=== PATIENT | female | born 1940 | race Caucasian/White ===

== ENCOUNTER 2016-06-06 08:35 | Inpatient (IN) | payer OTHER, BC ==
--- NOTE | 2016-06-06 08:52 | PDOC ---
History and Physical - History of Present Illness Date and Time of Service: 06/06/2016 8:55 AM Chief Complaint: Aphasia and right-sided weakness secondary to recent stroke. Poor nutrition secondary to the stroke status post PEG tube placement History of Present Illness: This is a 76 years old female with medical history significant for history of diabetes and recent stroke that caused right-sided weakness with receptive aphasia, GERD who has been in the hospital for rehabilitation from her recent stroke. Her nutrition remained poor so after discussion with her power of attorney general it was decided that the he need to have a PEG tube and that was done on Friday. I saw her the next day, she had an episode where she had near syncope or syncope. We watched her we gave her some fluids and held her blood pressure medication and she improved we thought that it was the secondary to vasovagal episode. We thought that she could be go back to the swing bed status continue rehabilitation. No meaningful information can be obtained from the patient because of her receptive aphasia. Past Medical History Medical History: 1 CVA causing right-sided weakness and receptive aphasia 2. Hallux valgus, acquired, bilateral. 3. Gastroesophageal reflux disease. 4. Collapsed arches. 5. Diabetes recently diagnosed Surgical History: . Tonsillectomy Pertinent Family History: Cannot be obtained because of her aphasia Past Social History: Patient reportedly does not smoke, I cannot obtain an alcohol history from her due to her aphasia, she had worked on a ranch prior Substance Use Type: None Alcohol Use: None Medication / Allergies Home Medications: Home Medications Medication Instructions Recorded Confirmed Type Esomeprazole Magnesium [Nexium] 40 mg PO BID cap 02/21/16 05/28/16 History Multivitamin [Multi-Vitamin Daily] 1 each PO DAILY tab 02/21/16 05/28/16 History Chlorhexidine Gluconate [Hibiclens] 120 ml TP QD #1 bottle 02/28/16 03/09/16 Clinic Amlodipine Besylate 2.5 mg PO DAILY #30 tab 03/08/16 05/28/16 Clinic Simvastatin 1 tab PO DAILY #30 tab 03/08/16 05/28/16 Clinic Acetaminophen [Tylenol] 500 mg PO BID 05/28/16 05/28/16 History Escitalopram Oxalate [Lexapro] 10 mg PO DAILY 05/28/16 05/28/16 History Insulin Lispro Flexpen Inj 4 unit SUBCUT AC HS 0200 05/28/16 05/28/16 History [HumaLOG Flexpen Inj] Lisinopril [Prinivil Tab] 5 mg PO DAILY 05/28/16 05/28/16 History Omeprazole 40 mg PO DAILY 05/28/16 05/28/16 History metFORMIN Tab [Glucophage Tab] 1,000 mg PO BID 05/28/16 05/28/16 History Allergies/Adverse Reactions: Allergies Allergy/AdvReac Type Severity Reaction Status Date / Time amoxicillin AdvReac Severe anaphlaxis Verified 06/05/16 06:54 Review of Systems - Review of Systems All Systems: Reviewed & No Additional Complaints Except as Stated Exam - Vitals Vital Signs: Vital Signs Height 5 ft 5 in - General General Appearance: POSITIVE: No Acute Distress, Thin - Head Head Exam: POSITIVE: Normal Inspection, Atraumatic - Eye Eye Exam: POSITIVE: Normal Appearance - ENT ENT Exam: POSITIVE: Normal Exam - Neck Neck Exam: POSITIVE: Normal Inspection - Respiratory Respiratory Exam: POSITIVE: Clear to Auscultation - Bilaterally - Cardiovascular Cardiovascular Exam: POSITIVE: RRR - GI/Abdominal GI/Abdominal Exam: POSITIVE: Normal Bowel Sounds, Non Tender, Non Distended, Soft Additional GI/Abdominal Exam Details: J-tube in place - Rectal Rectal Exam: POSITIVE: Deferred - External Exam: POSITIVE: Deferred - Extremities Extremities Exam: POSITIVE: Normal Inspection - Back Additional Back Exam Details: Decubitus ulcer covered with dressing. - Neurological Neurological Exam: POSITIVE: Alert Additional Neurological Exam Details: Right-sided weakness with aphasia and word salad - Psychiatric Psychiatric Exam: POSITIVE: Flat Affect - Integumentary Integumentary Exam: POSITIVE: Normal Color Assessment and Plan - Patient Problems (1) History of stroke Current Visit: No Status: Acute Comment: Continue PT, OT. For nutrition she has a PEG tube and now she'll get nutrition supplementation through the PEG. (2) Diabetes Current Visit: Yes Status: Acute Comment: She is on metformin and sliding scale insulin continue. Her A1c much improved compared to February (3) Hypertension Current Visit: No Status: Chronic Comment: Her blood pressure is actually acceptable. I think I'll restart lisinopril at a low dose. This is mainly for history of stroke. Qualifiers: Hypertension type: essential hypertension Qualified Description: Essential hypertension Qualifier Code(s): (I10) Essential (primary) hypertension (4) Decubitus ulcer Current Visit: Yes Status: Acute Comment: This was present when she came in. Continue wound dressing. (5) DVT prophylaxis Current Visit: No Status: Acute Comment: She is on Lovenox (6) Depression Current Visit: Yes Status: Acute Comment: We thought that she was depressed and started her on antidepressant will continue. She did have some hyponatremia but we thought that's related to the ProcalAmine will recheck her sodium in a few days to make sure that this remains stable. (7) Esophagitis Current Visit: Yes Status: Acute Comment: She is on Prevacid continue
[2016-06-06] MEDS ORDERED: ENOXAPARIN SODIUM 40 MG/0.4 ML SYRINGE SUBCUT SCH (09:00)
[2016-06-06] MEDS ORDERED: metFORMIN 500 MG TABLET PO SCH (09:00)
[2016-06-06] MEDS ORDERED: ESCITALOPRAM 10 MG TABLET PO SCH (09:00)
[2016-06-06] MEDS ORDERED: LISINOPRIL 5 MG TABLET PO SCH (09:00)
[2016-06-06] MEDS ORDERED: Multivitamin Tab 1 TAB PO SCH (09:00)
[2016-06-06] MEDS ORDERED: CLOPIDOGREL 75 MG TABLET PO SCH (09:00)
[2016-06-06] MEDS: Insulin Lispro Flexpen 300 UNIT/3 ML INSULN.PEN SUBCUT SCH ×3 (11:32→21:11)
[2016-06-06] MEDS: metFORMIN 500 MG TABLET PO SCH (21:37)
[2016-06-06] MEDS: Simvastatin Tab 10 MG TAB PO SCH (21:38)
[2016-06-06] MEDS: ACETAMINOPHEN 500 MG TABLET PO PRN (21:38)
[2016-06-07] MEDS ORDERED: LANSOPRAZOLE 30 MG SOLUTAB PO SCH (07:00)
[2016-06-07] MEDS: LANSOPRAZOLE 30 MG SOLUTAB PO SCH (07:08)
[2016-06-07] MEDS: Insulin Lispro Flexpen 300 UNIT/3 ML INSULN.PEN SUBCUT SCH ×4 (07:08→21:05)
[2016-06-07] MEDS: ESCITALOPRAM 10 MG TABLET PO SCH (08:20)
[2016-06-07] MEDS: LISINOPRIL 5 MG TABLET PO SCH (08:20)
[2016-06-07] MEDS: Multivitamin Tab 1 TAB PO SCH (08:20)
[2016-06-07] MEDS: metFORMIN 500 MG TABLET PO SCH ×2 (08:20→21:17)
[2016-06-07] MEDS: CLOPIDOGREL 75 MG TABLET PO SCH (08:21)
[2016-06-07] MEDS: ENOXAPARIN SODIUM 40 MG/0.4 ML SYRINGE SUBCUT SCH (08:21)
--- NOTE | 2016-06-07 10:02 | OT.PROG ---
Progress Note Progress Note: S: Pt. low mood and appearing fatigued. O: Pt. seen from 0830 to 0900 with pt. moving form recliner chair to sitting edge of recliner with mod A. Pt. completed L s/p transfer with Max A x1. Pt. engaged in dressing tasks and requiring mod A to alen long-sleeved pull-over sweatshirt using luis-dressing techniques. Pt. engaged in Le dressing requiring max A x 1 with pt. requiring assist to thread elastic waist pants up to her mid- thigh. Pt. dependent to alen socks. A: Flexor synegry in RUE and incoming tone evidenced. P: Continue POC. Jackie Carlos ORD, OTR/L
--- NOTE | 2016-06-07 14:39 | OT PM DAY ---
Diagnosis : Cerebral Vascular Accident PM - Occupational Therapy S: The patient was seen before and after pool therapy session with PT. O: The therapist assisted the patient with transferring from recliner to the weight machine to her wheelchair with mod assist x1. The patient was wheeled down to the therapy department where she changed her clothes and had Tegaderm placed on her PICC tube and also on her wound on the coccyx. The patient attempted to assist putting her feet into her swimming suit. During transfers the patient did attempt to move feet appropriately, slowly moving side to side. The patient was transferred to PT for pool therapy. After session, the patient required max assist with doffing and donning of upper and lower extremity clothing and was wheeled back to her room where she she transferred from wheelchair to bed. During the time, it is noted that the patient did assist with side steps to move to line up with the bed with min assist, verbal cues, and tactile cues. The patient required mod assist to transfer from edge of bed to supine. The patient was able to lean toward the pillow but was not able to lift her feet up into the bed. The patient was left with call light available and blankets on. A: The patient demonstrated progress with increased movement during transfers today. P: Continue seeing patient BID during the week and one time per day over the weekend for upper extremity strengthening, ADLs, and overall functional mobility. MTDD
--- NOTE | 2016-06-07 15:28 | OTI REPORT ---
Thank you for the referral of [place] Sehr. She was seen on 06/06/16 for an occupational therapy swingbed evaluation secondary to CVA. SUBJECTIVE: The patient is a 76-year-old female who is being seen secondary going swingbed post a severe CVA which has affected her right upper and lower extremities and her speech. The patient recently had a feeding tube placed secondary to lack of nutrition and lack of ability to keep herself at a health status for her energy levels and nutritional needs. The patient is in the hospital to continue to work on improving her speech abilities, her functional tasks, and being able to maneuver more independently. PAST MEDICAL HISTORY: Past medical history can be found in the patient's medical record. OBJECTIVE FINDINGS: Range of motion: The patient has zero active range of motion in the shoulder. Elbow extension to flexion was 40 to 90 degrees. She is demonstrating some more active movement of the right elbow today. The patient was able to make a 50% fist and was able to open fingers, which is an improvement. Speech: The patient's speech can be garbled. She is demonstrating approximately 75% accuracy with yes and no responses. Her ability to engage in a full conversation is severely impaired and she is demonstrating some global aphasia, especially in the expressive aphasia realm. She does nod her head yes or no or she will respond with yes or no appropriately. Cognition: On a formal test, the patient is having difficulty naming objects. She can put together simple puzzles. She does engage in more conversation about things she is interested in. She will make good eye contact when she is engaged in the activity. Strength: Strength in the left upper extremity is approximately 3+/5 for shoulder flexion/abduction, 4/5 for elbow flexion/extension, and 3+/5 for wrist flexion/extension. These are somewhat hard to test because the patient has a difficult time understanding exactly what to do to try to assess strength. Strength in the right shoulder is 0/5. Right elbow flexion/extension was 0/5. Right hand strength is more than likely 1-/5. Activities of daily living: The patient requires max assist for lower extremity dressing and mod assist for upper extremity dressing. Transfers: The patient requires max assist to transfer from sit to stand and to complete stand pivot transfer. ASSESSMENT: At this time the patient is demonstrating effects from a pretty severe infarct of the frontal temporal lobe as well as the Broca's area of the brain. Problem List: Decreased speech/communication Decreased use of right upper extremity Decreased functional transfers Short-Term Goals: To be met by discharge from swingbed: Patient will be able to use right hand as a helper hand to grasp objects in front of her or to open containers with 75% independence. Patient will be able to actively move her elbow and hand to bring a cup to her mouth. Patient will be able to have accurate yes and no responses 90% of the time. Patient will be able to complete a toilet transfer with min assist. Patient will be able to dress lower extremities with min assist and upper extremities independently. Long-Term Goals: To be met following discharge from swingbed: Patient will more than likely need 24-hour care upon discharge. Patient will be able to communicate her needs consistently throughout the day. TREATMENT PLAN: Patient will be seen B.I.D during the week and one time per day over the weekend as a swingbed patient to address the above goals and objectives. INITIAL TREATMENT: Treatment today consisted of the swingbed evaluation followed by the patient completing multiple activities within her room. She worked on dressing self; she required max assist to dress lower extremities and mod assist to dress upper extremities. We worked on her speech abilities. The therapist brought a globe and she was able to respond yes or no to the states that she has visited and states she has not visited. We also worked on number tasks; she was able to state the numbers 3, 4, and 5 today. The patient was also able to work on writing her name without any help. She was able to write FINK four times. The therapist then assisted the patient with drawing pictures. MARS
--- NOTE | 2016-06-07 15:51 | PT.PROG ---
Progress Note Progress Note: S. Patient agreed to go to the therapy gym. O. Patient was stood x 3 minutes then transferred to the wheelchair where she was wheeled to the therapy gym, she was transferred from the wheelchair to the mat table. She was left with OT. A. she was supine for approximately 30 seconds and her head was raised to 45 degrees she then vomited and was unwilling to do any more PT. P. Continue POC.
--- NOTE | 2016-06-07 15:52 | PT.PROG ---
Progress Note Progress Note: Patient was not seen this afternoon due to Nursing recommendation.
--- NOTE | 2016-06-07 16:20 | PTI REPORT ---
Thank you for the referral of [place] Sher. She was seen on 06/06/16 for a swingbed evaluation status post CVA affecting right side. SUBJECTIVE: The patient is a 76-year-old female. The patient made it understood that her left knee aches and hurts in certain sitting positions. PAST MEDICAL HISTORY: Past medical history can be found in the patient's medical record. OBJECTIVE FINDINGS: General observations: The patient was seen post occupational therapy today. The patient was able to respond to yes or no questions well. The patient demonstrated expressive aphasia. The patient is flaccid in the right lower extremity and right upper extremity. The patient presents with a Stage II pressure ulcer right above the gluteal cleft. It appears macerated. Transfers: The patient requires mod to max assist x2 for sit to stand transfer with platform walker for right hand. The patient requires max assist for placing hand on walker. Ambulation: The patient requires mod assist x2 to max assist x2 with gait with max right lower extremity assistance. Balance: Standing balance is poor. Dynamic balance is poor. ASSESSMENT: The patient is a 76-year-old female status post CVA affecting right side, demonstrating right sided luis-paresis. The patient would benefit from skilled therapy in order to improve functional mobility. Problem List: Decreased functional mobility Decreased balance Decreased strength Physical Therapy Goals: To be met by discharge from swingbed: Patient will be able to complete bed mobility with min assist x1. Patient will be able to transfer from supine to sit with min assist x1. Patient will be able to ambulate with least restrictive assistive device. Patient will have fair sitting static and dynamic balance. TREATMENT PLAN: Patient will be seen B.I.D during the week and one time per day over the weekend as a swingbed patient for therapeutic exercise, functional activity, gait training, neuromuscular reeducation, range of motion, modalities as needed , and wound care. INITIAL TREATMENT: Treatment today consisted of the swingbed evaluation followed by standing balance activities. The patient required mod to max assist x2. The patient ambulated approximately 3 feet with max assist for lower extremity. She required rest break and then ambulated another 5 feet with max assist x2 for right lower extremity. The patient's wound was assessed and dressed with Calmoseptine and gauze. The patient was left in bed with bed alarm on and call light within reach. MTDD
--- NOTE | 2016-06-07 17:11 | PT.PROG ---
Progress Note Progress Note: S: [place] is doing fair this PM. Fatigued from her therapies this AM but appears to be excited to get back into the pool this afternoon. O: Treatment consisted of pool exercises for 20 minutes - working on ambulation with assistance. Pt able to ambulate with CGA x 1 before fatigued set in then required assistance to move her l/e. A: Pt fatigued easily with pool exercises today and not able to tolerate as much activity as in previous sessions. Pt did better with ambulation and lifting her l/e's until she fatigued. Pt did not participate in counting during exercises this PM. P: Continue per POC.
[2016-06-07] MEDS: ACETAMINOPHEN 500 MG TABLET PO PRN (21:16)
[2016-06-07] MEDS: Simvastatin Tab 10 MG TAB PO SCH (21:16)
[2016-06-08] MEDS: ACETAMINOPHEN 500 MG TABLET PO PRN (03:00)
[2016-06-08 05:50] LABS: BUN/CREATININE RATIO 24.28 (6-20); CALCIUM 9.1 mg/dL (8.7-10.7); CREATININE 0.7 mg/dL (0.50-1.20); POTASSIUM 3.9 meq/L (3.8-5.2)
[2016-06-08] MEDS: Insulin Lispro Flexpen 300 UNIT/3 ML INSULN.PEN SUBCUT SCH ×4 (08:38→21:30)
[2016-06-08] MEDS: LANSOPRAZOLE 30 MG SOLUTAB PO SCH (08:40)
[2016-06-08] MEDS: ENOXAPARIN SODIUM 40 MG/0.4 ML SYRINGE SUBCUT SCH (09:47)
[2016-06-08] MEDS: ESCITALOPRAM 10 MG TABLET PO SCH (09:48)
[2016-06-08] MEDS: Multivitamin Tab 1 TAB PO SCH (09:48)
[2016-06-08] MEDS: metFORMIN 500 MG TABLET PO SCH ×2 (09:48→21:30)
[2016-06-08] MEDS: CLOPIDOGREL 75 MG TABLET PO SCH (09:48)
[2016-06-08] MEDS: LISINOPRIL 5 MG TABLET PO SCH (09:53)
--- NOTE | 2016-06-08 11:35 | PT.PROG ---
Progress Note Progress Note: S: Pt. expresses fatigue today. Otherwise no new c/o. O: Treatment consisted of functional activities including transfer training from recliner to w/c and back. She performed seated Ue exercises: bicep curls, shoulder extension with yellow theraband; fine motor tasks working to peice puzzles for visual motor cueing and pincer strength. She also worked on writing tasks and was able to write a word 5 times...the word was not disernable. Pt. placed back in her recliner with feet elevated and nursing notified. Chair alarm in place. A: Pt. very fatigued today and had difficulty completing task while staying alert. She was able to assist with transfers and did well with static standing. Otherwise still weak and fatigues easily. P: Continue per POC to increase strength and activity tolerance. Roxanne Jones, NETWORK PROFESSIONAL
[2016-06-08] MEDS: Simvastatin Tab 10 MG TAB PO SCH (21:30)
[2016-06-09] MEDS: ACETAMINOPHEN 500 MG TABLET PO PRN ×2 (00:49→20:48)
[2016-06-09] MEDS: LANSOPRAZOLE 30 MG SOLUTAB PO SCH (08:24)
[2016-06-09] MEDS: ENOXAPARIN SODIUM 40 MG/0.4 ML SYRINGE SUBCUT SCH (09:53)
[2016-06-09] MEDS: CLOPIDOGREL 75 MG TABLET PO SCH (09:53)
[2016-06-09] MEDS: LISINOPRIL 5 MG TABLET PO SCH (09:53)
[2016-06-09] MEDS: metFORMIN 500 MG TABLET PO SCH ×2 (09:54→20:47)
[2016-06-09] MEDS: ESCITALOPRAM 10 MG TABLET PO SCH (09:54)
[2016-06-09] MEDS: Insulin Lispro Flexpen 300 UNIT/3 ML INSULN.PEN SUBCUT SCH ×4 (10:05→20:29)
[2016-06-09] MEDS: Multivitamin Tab 1 TAB PO SCH (10:14)
--- NOTE | 2016-06-09 12:01 | PDOC(PROG) ---
Interval History: Patient is alert still with expressive aphasia looks very weak Objective : Data - Labs CBC and BMP: 06/08/16 05:20 Objective : Exam - Respiratory Respiratory Exam: Clear to Auscultation - Bilaterally, Breathing Non Labored, Normal To Percussion - Cardiovascular Cardiovascular Exam: RRR, No Murmur - GI/Abdominal GI/Abdominal Exam: Normal Bowel Sounds, Soft Assessment and Plan - Patient Problems (1) Decubitus ulcer Current Visit: Yes Status: Acute (2) Depression Current Visit: Yes Status: Acute (3) Diabetes Current Visit: Yes Status: Acute (4) Esophagitis Current Visit: Yes Status: Acute (5) Aphasia as late effect of cerebrovascular accident Current Visit: No Status: Acute (6) History of stroke Current Visit: No Status: Acute (7) Hypertension Current Visit: No Status: Chronic Qualifiers: Hypertension type: essential hypertension Qualified Description: Essential hypertension Qualifier Code(s): (I10) Essential (primary) hypertension - Assessment / Plan Additional Assessment/Plan Details: - Patient Problems (1) History of stroke Continue PT, OT. For nutrition she has a PEG tube nutrition specialists consulted she will be getting her feeding via PEG tube (2) Diabetes on metformin and sliding scale plus insulin continue. Her A1c much improved compared to February (3) Hypertension Continue lisinopril (4) Decubitus ulcer This was present when she came in. Continue wound dressing. (5) DVT prophylaxis She is on Lovenox (6) Depression Patient is on antidepressant I doubt this is helping much (7) Esophagitis She is on Prevacid continue
[2016-06-09] MEDS: Simvastatin Tab 10 MG TAB PO SCH (20:47)
[2016-06-10] MEDS: ACETAMINOPHEN 500 MG TABLET PO PRN ×2 (03:29→20:39)
[2016-06-10] MEDS: Insulin Lispro Flexpen 300 UNIT/3 ML INSULN.PEN SUBCUT SCH ×2 (07:44→11:21)
[2016-06-10] MEDS: ESCITALOPRAM 10 MG TABLET PO SCH (09:30)
[2016-06-10] MEDS: LISINOPRIL 5 MG TABLET PO SCH (09:30)
[2016-06-10] MEDS: LANSOPRAZOLE 30 MG SOLUTAB PO SCH (09:30)
[2016-06-10] MEDS: metFORMIN 500 MG TABLET PO SCH ×2 (09:30→20:39)
[2016-06-10] MEDS: ENOXAPARIN SODIUM 40 MG/0.4 ML SYRINGE SUBCUT SCH (09:31)
[2016-06-10] MEDS: Multivitamin Tab 1 TAB PO SCH (09:31)
[2016-06-10] MEDS: CLOPIDOGREL 75 MG TABLET PO SCH (09:31)
--- NOTE | 2016-06-10 10:25 | PT AM DAY ---
Diagnosis : Cerebral Vascular Accident AM - Physical Therapy S: Nursing staff reports the patient continues to refuse to eat. O: The patient required max assist for all bed mobility and transfers in and out of the wheelchair. She was brought downstairs where she performed therapeutic exercises and functional activities including fine motor skills with her left arm only, ball rolling, and writing activities. She also participated in static standing activities with max assist x1 from the therapist. Inspection was attempted in the gluteal fold; however, a bandage was put in place with the date from this morning from the nursing staff and therefore was not removed for inspection. She also performed left lower extremity kick out exercises and marches as well as left upper extremity yellow theraband strengthening. A: The patient tolerated therapy much like she has done in the past. P: Continue seeing patient BID during the week and one time per day over the weekend for transfers, ambulation, and range of motion/strengthening exercises. MTDD
--- NOTE | 2016-06-10 12:19 | OT.PROG ---
Progress Note Progress Note: S: Pt. loose stool today during OT session and pt. appearing frustrated. O: Pt. seen from 1130 to 1145 with pt. completing transfer form recliner to commode performing a L s/p transfer with mod A. Pt. required total assist for toileting (brief up and down, and cleanse) and mod A for commode transfer. A: Pt rambling throughout tx session and nursing notified of pt's loose stool as well as needing a dressing change for wound on coccyx. P: Continue POC. Jackie Carlos OTD, OTR/L
--- NOTE | 2016-06-10 14:58 | PT.PROG ---
Progress Note Progress Note: S. Patient agreed to go to the commode, she is not feeling well this morning. O. Patient transferred to the commode she stood x 2 minutes then sit to stands x 3 and transferred back to the chair where she was left with alarm and call light. A. Patient continues to struggle with weakness, she was able to perform the stand pivot transfer with mod assist x 1. Patient would continue to benefit from skilled therapy to increase mobility, strength and endurance. P. continue POC.
--- NOTE | 2016-06-10 15:01 | PT.PROG ---
Progress Note Progress Note: Nursing suggested to allow her to rest this afternoon due to her diarrhea.
[2016-06-10] MEDS: Simvastatin Tab 10 MG TAB PO SCH (20:39)
[2016-06-11] MEDS: LANSOPRAZOLE 30 MG SOLUTAB PO SCH (09:26)
[2016-06-11] MEDS: ENOXAPARIN SODIUM 40 MG/0.4 ML SYRINGE SUBCUT SCH (09:27)
[2016-06-11] MEDS: LISINOPRIL 5 MG TABLET PO SCH (09:27)
[2016-06-11] MEDS: ESCITALOPRAM 10 MG TABLET PO SCH (09:27)
[2016-06-11] MEDS: CLOPIDOGREL 75 MG TABLET PO SCH (09:27)
[2016-06-11] MEDS: metFORMIN 500 MG TABLET PO SCH ×2 (09:27→20:32)
[2016-06-11] MEDS: Multivitamin Tab 1 TAB PO SCH (09:27)
--- NOTE | 2016-06-11 14:36 | PT.PROG ---
Progress Note Progress Note: S. Patient agreed to go to the therapy gym. O. Patient transferred to the wheelchair then to the commode then back to the wheelchair then to bed. A. Patient was very tired and weak after having diarrhea, she did not want to leave her room. Patient would continue to benefit from skilled therapy to increase strength, endurance and mobility. P. Continue POC.
[2016-06-11] MEDS: ACETAMINOPHEN 500 MG TABLET PO PRN (20:33)
[2016-06-11] MEDS: Simvastatin Tab 10 MG TAB PO SCH (20:33)
[2016-06-12] MEDS: ACETAMINOPHEN 500 MG TABLET PO PRN ×2 (02:30→21:12)
[2016-06-12 06:08] LABS: BILIRUBIN,TOTAL 0.6 mg/dL (0.3-1.2); BUN/CREATININE RATIO 16.66 (6-20); CALCIUM 8.5 mg/dL (8.7-10.7); CREATININE 0.6 mg/dL (0.50-1.20); MAGNESIUM 1.4 mg/dL (1.6-2.4); POTASSIUM 2.7 meq/L (3.8-5.2); TOTAL PROTEIN 5.6 g/dL (6.1-8.0)
[2016-06-12] MEDS: LANSOPRAZOLE 30 MG SOLUTAB PO SCH (10:12)
[2016-06-12] MEDS: LISINOPRIL 5 MG TABLET PO SCH (10:13)
[2016-06-12] MEDS: metFORMIN 500 MG TABLET PO SCH ×2 (10:13→21:12)
[2016-06-12] MEDS: Multivitamin Tab 1 TAB PO SCH (10:13)
[2016-06-12] MEDS: CLOPIDOGREL 75 MG TABLET PO SCH (10:14)
[2016-06-12] MEDS: ENOXAPARIN SODIUM 40 MG/0.4 ML SYRINGE SUBCUT SCH (10:14)
[2016-06-12] MEDS: ESCITALOPRAM 10 MG TABLET PO SCH (10:14)
--- NOTE | 2016-06-12 14:11 | OT AM DAY ---
Diagnosis : Cerebral Vascular Accident AM - Occupational Therapy S: The patient reports no significant changes. O: We worked on dressing tasks which included dressing upper extremities with mod assist. Once we got the patient in the wheelchair, she kept pulling at her Depends and saying "not good". We put the patient on the commode and the patient filled the commode with approximately 1" of diarrhea. The therapist worked on trying to have the patient toilet. It took three different times today in order to get the patient back in some decent clothes. We had to change her clothes twice and the Depends three different times as each time we stood up the patient had so much diarrhea it would go onto her pants and her Depends, even after sitting on the commode for 5-10 minutes after each episode. We finally got the Depends and pants pulled up to the patient's waist. The patient stated that she didn't feel good. Some things that were stated today were "this is disgusting", "it smells gross", and "I don't know what to do". The patient was able to verbalize some of her needs as well as point to the area that she was having difficulty with today. A: It was reported to nursing that the patient was having severe amounts of diarrhea. She was going to talk to Dr. Jackman about possible c.diff testing and anything else that could help decrease the diarrhea. This has been going on since Friday per nursing. The patient was not up for anymore activities following this. P: Continue seeing patient BID during the week and one time per day over the weekend until discharge. MARS
--- NOTE | 2016-06-12 16:36 | PT.PROG ---
Progress Note Progress Note: Patient was unable to perform therapy this afternoon due to diarrhea again this afternoon.
--- NOTE | 2016-06-12 16:36 | PT.PROG ---
Progress Note Progress Note: S. Patient agreed to stand for a few minutes, she did not want to go to the therapy gym. O. Patient transferred from sit to stand then stood x 5 minutes. Patient performed sit to stand 3 times with mod assist. Patient was left with OT for further therapy. A. Patient was unwilling to perform any other therapy. Patient appears to be weaker than previously. She would continue to benefit from skilled therapy to increase strength and mobility. P. Continue POC.
[2016-06-12] MEDS: Loperamide Tab 2 MG TABLET PO SCH (17:34)
[2016-06-12] MEDS: Simvastatin Tab 10 MG TAB PO SCH (21:12)
--- NOTE | 2016-06-13 08:50 | OT PM DAY ---
Diagnosis : Cerebral Vascular Accident PM - Occupational Therapy S: The patient was excited to try some activities this afternoon. She smiled a lot and was talkative during the session; most of her verbalization was garbled but she did make some sensible remarks. O: Today the therapist presented with a painting activity. We attempted to have the patient state simple objects such as harley, trees, birds, etc. The patient was able to dip the paintbrush in her left hand and started writing FINK three times on the paper. The therapist assisted with hand over hand assist for making harley and trees. After this the patient made four different harley on the paper by herself. She was on an angled board with her glasses on. She also started painting shapes on her own which somewhat represented clouds. During this time the patient said "please" and "thank you" and she also said "that's nice". The patient nodded and said "mm-hmm" a few different times and she was quite pleasant. After 45 minutes of painting and discussing basic items, the patient reported that she was very fatigued. A: The patient participated well today. She made some sensible comments. She is still having difficulty with naming objects but is being very responsive and having accuracy with yes and no responses. P: Continue seeing patient BID during the week and one time per day over the weekend for upper extremity strengthening, ADLs, and overall functional mobility. MARITOD
--- NOTE | 2016-06-13 09:22 | OT PM DAY ---
Diagnosis : Cerebral Vascular Accident PM - Occupational Therapy S: The patient did look like she was having some stomach problems but she kept telling the therapist that she did not have to go to the bathroom. O: Today we attempted going to the pool. We transferred the patient from the chair to the wheelchair with max assist. The patient was transferred down to the pool area. When we stood the patient she started having diarrhea. We sat the patient on the toilet and she sat for approximately 10 minutes. She did nothing in the toilet and when we stood her up she had a diarrhea explosion all over the toilet and the floor. We cleaned the patient up and continued to sit her on the toilet. She did have quite a bit of diarrhea in the toilet. We did another clean up and transferred the patient back to the wheelchair and back to her room. The patient was placed in bed with call light. Her nurse was consulted again about her diarrhea as this is a concern. A: We tried doing functional activities with the patient but she continues to have pretty explosive diarrhea. She is very tired after this and usually closes her eyes and says "no more". P: Continue seeing patient BID during the week and one time per day over the weekend until discharge. MARS
--- NOTE | 2016-06-13 09:32 | OT AM DAY ---
Diagnosis : Cerebral Vascular Accident AM - Occupational Therapy S: The patient was seen after PT session. The patient indicated that she was fatigued and hurts all over. O: The patient received manual therapy in the form of massage to the lower extremities and to left upper extremity to decrease tightness and increase circulation. The patient is very tight bilaterally in IT band. The therapist massaged and stretched the patient to help increase elasticity and to promote circulation. A: The patient indicated by the end of session she felt better. P: Continue seeing patient BID during the week and one time per day over the weekend for upper extremity strengthening, ADLs, and overall functional mobility. MTDD
[2016-06-13] MEDS: LANSOPRAZOLE 30 MG SOLUTAB PO SCH (09:56)
[2016-06-13] MEDS: Multivitamin Tab 1 TAB PO SCH (09:57)
[2016-06-13] MEDS: ESCITALOPRAM 10 MG TABLET PO SCH (09:57)
[2016-06-13] MEDS: CLOPIDOGREL 75 MG TABLET PO SCH (09:57)
[2016-06-13] MEDS: LISINOPRIL 5 MG TABLET PO SCH (09:57)
[2016-06-13] MEDS: ENOXAPARIN SODIUM 40 MG/0.4 ML SYRINGE SUBCUT SCH (09:57)
[2016-06-13] MEDS: metFORMIN 500 MG TABLET PO SCH ×2 (09:57→21:35)
[2016-06-13] MEDS: Loperamide Tab 2 MG TABLET PO SCH ×2 (11:25→21:35)
[2016-06-13] MEDS ORDERED: metFORMIN 500 MG TABLET PO ONE (19:57)
[2016-06-13] MEDS ORDERED: Simvastatin Tab 10 MG TAB PO ONE (19:57)
[2016-06-13] MEDS ORDERED: Loperamide Tab 2 MG TABLET PO ONE (19:58)
[2016-06-13 21:06] LABS: BILIRUBIN,TOTAL 0.5 mg/dL (0.3-1.2); CALCIUM 8.3 mg/dL (8.7-10.7); CREATININE 0.6 mg/dL (0.50-1.20); POTASSIUM 2.9 meq/L (3.8-5.2); TOTAL PROTEIN 5.5 g/dL (6.1-8.0)
[2016-06-13] MEDS: Simvastatin Tab 10 MG TAB PO SCH (21:35)
[2016-06-14] MEDS ORDERED: LANSOPRAZOLE 30 MG SOLUTAB PO ONE (08:42)
[2016-06-14] MEDS: LANSOPRAZOLE 30 MG SOLUTAB PO SCH (08:46)
[2016-06-14] MEDS ORDERED: Loperamide Tab 2 MG TABLET PO SCH ×2 (09:30)
[2016-06-14] MEDS ORDERED: LISINOPRIL 5 MG TABLET PO ONE (10:05)
[2016-06-14] MEDS: Multivitamin Tab 1 TAB PO SCH ×2 (10:08→10:23)
[2016-06-14] MEDS: metFORMIN 500 MG TABLET PO SCH ×3 (10:09→21:00)
[2016-06-14] MEDS: LISINOPRIL 5 MG TABLET PO SCH (10:09)
[2016-06-14] MEDS: ESCITALOPRAM 10 MG TABLET PO SCH ×2 (10:23→10:24)
[2016-06-14] MEDS: ENOXAPARIN SODIUM 40 MG/0.4 ML SYRINGE SUBCUT SCH ×2 (10:23→10:24)
[2016-06-14] MEDS: CLOPIDOGREL 75 MG TABLET PO SCH ×2 (10:23→10:24)
[2016-06-14] MEDS ORDERED: POTASSIUM CHLORIDE 40 MEQ/15 ML UD CUP PO ONE (10:39)
--- NOTE | 2016-06-14 11:20 | PT PM DAY ---
Diagnosis : Cerebral Vascular Accident PM - Physical Therapy S: The patient agreed to go to the therapy gym. O: The patient was transferred to the wheelchair and was wheeled to the therapy gym where she performed sit to stand transfers x3, standing x5 minutes, seated long arc quads, marches, heel/toe raises, ball squeezes, and clamshells with the left leg. With assistance the patient performed long arc quads and marches with her right leg. The patient was wheeled back to her room where she was left in bed with call light and alarm. A: The patient continues to tolerate therapy well. She was in a much better mood today than she has been previously. She appears to be weaker than she was in previous weeks; however, she seems to be gaining. She would continue to benefit from therapy to increase strength and mobility. P: Continue seeing patient BID during the week and one time per day over the weekend for transfers, ambulation, and range of motion/strengthening exercises. MARS
[2016-06-14 11:23] LABS: BUN/CREATININE RATIO 8.33 (6-20); CALCIUM 8.4 mg/dL (8.7-10.7); CREATININE 0.6 mg/dL (0.50-1.20); MAGNESIUM 1.3 mg/dL (1.6-2.4); POTASSIUM 3.2 meq/L (3.8-5.2)
--- NOTE | 2016-06-14 11:29 | OT PM DAY ---
Diagnosis : Cerebral Vascular Accident PM - Occupational Therapy S: The patient was down in the therapy department participating with PT. O: After PT session the patient participated in cognitive and functional activities. She participated in block activity, working on three letter word spelling. The patient was able to do D-O-G, C-A-T, and C-O-W. She was able to do the words but she did them backwards. The patient participated in theraputty activity; she was able to roll it out, pinch it and perform hand strengthening activities with minimal verbal cues. During the session she also participated in clothespin activity where she would match colors and was able to perform task with minimal verbal cues. A: The patient did show some decline from this morning's session. She was still able to demonstrate good hand strength and manipulation and follow through on tasks. P: Continue seeing patient BID during the week and one time per day over the weekend for upper extremity strengthening, ADLs, and overall functional mobility. MARS
--- NOTE | 2016-06-14 14:11 | OT AM DAY ---
Diagnosis : Cerebral Vascular Accident AM - Occupational Therapy S: The patient was a great participant today. O: The patient participated in speech activities and she did the best she's done the entire time she's been here. She was given the visual Matrix game with three letters in front of her in a mixed up pattern. She was able to spell FINK, HAT, CAT, RED, COW, and SILVIO. She was making increased verbalizations of letters. The letters that she stated were F, R, T, A, R, and G. She was able to draw a flower on her own and she continued to write FINK and she was able to trace over the letters to spell SILVIO. The patient strung 10 beads and we worked on naming colors; however, she was not able to repeat the colors. Upstairs in her room we completed a commode transfer. The patient still has diarrhea. This took approximately 20 minutes of our time completing functional transfers and hygiene after her bowel movement. We then worked on brushing her hair and brushing her teeth. A: The patient did very well today; her cognition has improved. She was able to spell three letter words. P: Continue seeing patient BID during the week and one time per day over the weekend for upper extremity strengthening, ADLs, and overall functional mobility. MARS
--- NOTE | 2016-06-14 15:03 | OT AM DAY ---
Diagnosis : Cerebral Vascular Accident AM - Occupational Therapy S: The patient reported she was fine with coming down to therapy. O: Today the patient completed a chair to wheelchair transfer with max assist. Downstairs in therapy we brought her to a table and worked on some cognitive and speech activities. The patient was asked to spell two words; the first word was JOSEPH and she ended up reversing this into NAP. She was then asked to spell the word BED and she spelled JW. Cubes with numbers 1 through 15 were placed randomly in front of the patient and she was able to put the cubes in consecutive order. She also noticed that there was a discrepancy between the 8 and the 9 and did change this at the table. On the way down to therapy, we had the patient stop at several different [place] decorations and a quilt and we tried to make conversation at the different places. The patient did say "it's jordana", "it's beautiful", "thank you", and "how nice" during this time. A: The patient did fatigue at the end of the 30 minutes but did engage in some conversation today. She had a better affect about her in the beginning; she smiled frequently and participated in the number and word activities. P: Continue seeing patient BID during the week and one time per day over the weekend for upper extremity strengthening, ADLs, and overall functional mobility. MARS
[2016-06-14] MEDS ORDERED: Magnesium Sulfate 4gm (Premix) 4 GM in Premix 1 BAG IV ONE (15:59)
--- NOTE | 2016-06-14 16:05 | PT.PROG ---
Progress Note Progress Note: S. Patient agreed to go to the therapy gym this morning. O. Patient was wheeled to the therapy gym where she performed exercises in the form of; marches, long arc quads, heel toe raises, ball squeezes all x 10. Patient was wheeled back to her room and stood x 2 minutes then performed sit to stands x 5. Patient was left in bed with nursing. A. Patient tolerated exercises well, she appeared fatigued however she was able to perform exercises, She had another bout of diarrhea after therapy this afternoon. Patient would continue to benefit from skilled therapy to increase strength and endurance at this time. P. Continue POC.
--- NOTE | 2016-06-14 16:16 | PDOC(PROG) ---
Date and Time of Service: 06/14/2016, 1605 Interval History: Still has "word salad", with expressive and possibly receptive aphasia as well. She has not been tolerating tube feeds according to the nursing and dietitian. Objective : Data - Labs CBC and BMP: 06/14/16 11:07 Labs - Last 24 Hours: Laboratory Results 06/13/16 06/14/16 Range/Units 20:47 11:07 Sodium 135 136 (135-145) meq/L Potassium 2.9 L 3.2 L (3.8-5.2) meq/L Chloride 108 109 (98-112) meq/L Carbon Dioxide 21 L 19 L (23-33) meq/L Anion Gap 6 8 (5-20) BUN 6 L 5 L (7-22) mg/dL Creatinine 0.6 0.6 (0.50-1.20) mg/dL Estimated GFR (>60 ml/min/1.73m(2)) BUN/Creatinine Ratio 10.00 8.33 (6-20) Glucose 146 H 141 H (78-110) mg/dL Calculated Osmolality 280.0 280.0 (267-292) mOsm/kg Calcium 8.3 L 8.4 L (8.7-10.7) mg/dL Magnesium 1.3 L (1.6-2.4) mg/dL Total Bilirubin 0.5 (0.3-1.2) mg/dL AST 17 (8-39) IU/L ALT 40 (9-52) IU/L Alkaline Phosphatase 66 (38-126) IU/L Total Protein 5.5 L (6.1-8.0) g/dL Albumin 2.6 L (3.5-4.8) g/dL Globulin 2.9 (2.50-4.10) g/dL Albumin/Globulin Ratio 0.80 L (1.3-2.0) mg/g Objective : Exam - General General Appearance: No Acute Distress, Cooperative Additional General Exam Details: Vital Signs - Last Taken Temperature 97.8 F 06/14/16 08:52 Pulse Rate 79 06/14/16 08:52 Respiratory Rate 16 06/14/16 08:52 Blood Pressure 146/71 06/14/16 08:52 Pulse Ox 93 06/14/16 08:52 - Eye Eye Exam: No Scleral Icterus - Respiratory Respiratory Exam: Clear to Auscultation - Bilaterally, Breathing Non Labored - Cardiovascular Cardiovascular Exam: RRR, No Murmur, No Clicks, No Gallops, No Rubs, No JVD - GI/Abdominal GI/Abdominal Exam: Non Tender, Non Distended, Soft - Extremities Extremities Exam: No Clubbing Present, No Edema Present, No Cyanosis Present - Neurological Neurological Exam: Alert, No Facial Droop, Altered Assessment and Plan - Patient Problems (1) Protein calorie malnutrition Current Visit: Yes Status: Acute (2) Decubitus ulcer Current Visit: Yes Status: Acute Qualifiers: Pressure ulcer location: sacral region Pressure ulcer stage: stage 2 Qualified Description: Decubitus ulcer of sacral region, stage 2 Qualifier Code(s): (L89.152) Pressure ulcer of sacral region, stage 2 (3) Diabetes Current Visit: Yes Status: Acute Qualifiers: Diabetes mellitus type: type 2 Diabetes mellitus complication status: without complication Diabetes mellitus senior care insulin use: without terminal worker use Qualified Description: Type 2 diabetes mellitus without complication, without long-term current use of insulin Qualifier Code(s): (E11.9) Type 2 diabetes mellitus without complications (4) Aphasia as late effect of cerebrovascular accident Current Visit: Yes Status: Chronic (5) History of stroke Current Visit: Yes Status: Chronic (6) Hypertension Current Visit: Yes Status: Chronic Qualifiers: Hypertension type: essential hypertension Qualified Description: Essential hypertension Qualifier Code(s): (I10) Essential (primary) hypertension - Assessment / Plan Additional Assessment/Plan Details: I spoke with the nurse and the patient has a clean ulcer bed currently it is stage II. It is present on admission to the swing bed here. In terms of her malnutrition, she has a PEG tube in place, and we are just trying to find and nutrition solution that will work well with her. I spoke at length with the dietitian/draw end hand, and we think that we might start at a very slow rate once we get her tube feeding in and proceed slowly. Diarrhea associated with tube feedingwe may start the patient on Benefiber or Metamucil to help bulk up the stool. Replace electrolytes
--- NOTE | 2016-06-14 16:38 | OT.PROG ---
Progress Note Progress Note: S" Pt. appearing quite fatigued and saying "no" to getting up. O: Pt. seen from 414 to 429 with pt. provided with gentle PROM to R hand and wrist with increased edema noted. Pt. does have an IV in her right hand. Staff education provided regarding elevation strategies in attempt to promote edema reduction. Pt. does appear to be having pain in her right hand as evidenced by facial grimacing yet unable to quantify or iterate. A: Pt. may benefit from further edema reduction strategies. P: Continue POC. Jackie Carlos OTD, OTR/L
[2016-06-14] MEDS: Simvastatin Tab 10 MG TAB PO SCH (21:00)
[2016-06-14] MEDS: ACETAMINOPHEN 500 MG TABLET PO PRN (23:52)
[2016-06-15 05:46] LABS: BUN/CREATININE RATIO 8.33 (6-20); CREATININE 0.6 mg/dL (0.50-1.20); POTASSIUM 3.5 meq/L (3.8-5.2)
[2016-06-15] MEDS: LANSOPRAZOLE 30 MG SOLUTAB PO SCH (08:19)
[2016-06-15] MEDS ORDERED: ENOXAPARIN SODIUM 40 MG/0.4 ML SYRINGE SUBCUT SCH (09:00)
[2016-06-15] MEDS ORDERED: ESCITALOPRAM 10 MG TABLET PO SCH (09:00)
[2016-06-15] MEDS ORDERED: CLOPIDOGREL 75 MG TABLET PO SCH (09:00)
[2016-06-15] MEDS ORDERED: LISINOPRIL 5 MG TABLET PO ONE (09:11)
[2016-06-15] MEDS: metFORMIN 500 MG TABLET PO SCH ×2 (09:20→20:38)
[2016-06-15] MEDS: LISINOPRIL 5 MG TABLET PO SCH (09:20)
[2016-06-15] MEDS: ENOXAPARIN SODIUM 40 MG/0.4 ML SYRINGE SUBCUT SCH (09:21)
[2016-06-15] MEDS: Multivitamin Tab 1 TAB PO SCH (09:21)
[2016-06-15] MEDS: ESCITALOPRAM 10 MG TABLET PO SCH (09:21)
[2016-06-15] MEDS: CLOPIDOGREL 75 MG TABLET PO SCH (09:21)
--- NOTE | 2016-06-15 10:33 | PT.PROG ---
Progress Note Progress Note: S: pt agreeable to PT. seems to be in good spirits today. pt reports yes to the question is her stomach feeling better. Pt reports she just can't eat. O: nsg okay'd prior to PT. pt requires max assist x1 for sit<>stand pivot transfer to w/c. Pt brought down to therapy gym. Pt instructed to perform LAQs x 10 reps LLE, seated hs curls RTb, hand activities, cloth pin activity with number match, refused spelling words today. Pt instructed in RTB UE strengthening ex LUE. Pt started coughing up flem episode. pt returned to room and place in bed with max assist x1 for all transfers and bed mobility. A: pt tolerated therapy fair today, in good spirits. able to respond to yes/ no questions well. didn't feel well at end of therapy session. P: cont per POC
[2016-06-15] MEDS ORDERED: Magnesium Sulfate 2gm (Premix) 2 GM in Premix 1 BAG IV ONE (10:51)
[2016-06-15] MEDS: Loperamide Tab 2 MG TABLET PO SCH ×2 (17:56→20:38)
[2016-06-15] MEDS: ACETAMINOPHEN 500 MG TABLET PO PRN (20:37)
[2016-06-15] MEDS: Simvastatin Tab 10 MG TAB PO SCH (20:38)
[2016-06-15] MEDS: MAGNESIUM OXIDE 400 MG TABLET PO SCH (20:38)
[2016-06-15] MEDS: POTASSIUM CHLORIDE 40 MEQ/15 ML UD CUP PO SCH (21:53)
[2016-06-16 06:05] LABS: BUN/CREATININE RATIO 13.33 (6-20); CALCIUM 8.1 mg/dL (8.7-10.7); CREATININE 0.6 mg/dL (0.50-1.20); MAGNESIUM 1.9 mg/dL (1.6-2.4); POTASSIUM 3.5 meq/L (3.8-5.2)
[2016-06-16] MEDS ORDERED: LISINOPRIL 5 MG TABLET PO ONE (08:09)
[2016-06-16] MEDS: CLOPIDOGREL 75 MG TABLET PO SCH (08:13)
[2016-06-16] MEDS: metFORMIN 500 MG TABLET PO SCH ×2 (08:13→20:25)
[2016-06-16] MEDS: LANSOPRAZOLE 30 MG SOLUTAB PO SCH (08:13)
[2016-06-16] MEDS: ESCITALOPRAM 10 MG TABLET PO SCH (08:13)
[2016-06-16] MEDS: Multivitamin Tab 1 TAB PO SCH (08:13)
[2016-06-16] MEDS: MAGNESIUM OXIDE 400 MG TABLET PO SCH ×2 (08:13→20:25)
[2016-06-16] MEDS: LISINOPRIL 5 MG TABLET PO SCH (08:13)
[2016-06-16] MEDS: POTASSIUM CHLORIDE 40 MEQ/15 ML UD CUP PO SCH (08:14)
[2016-06-16] MEDS ORDERED: ENOXAPARIN SODIUM 40 MG/0.4 ML SYRINGE SUBCUT ONE (08:17)
[2016-06-16] MEDS: ENOXAPARIN SODIUM 40 MG/0.4 ML SYRINGE SUBCUT SCH (08:18)
--- NOTE | 2016-06-16 10:08 | PT.PROG ---
Progress Note Progress Note: S: pt agreeable to PT O: nsg okay'd prior to therapy. Pt instructed in LAQs x 20 reps including RLE, tactile cues for R quad facilitation and for full extension holds, unable to reach full ext RLE, unable to DF/PF R foot. Pt able to scoot to edge of chair with mod assist x1, max assist x 1 for sit to stand transfer. with max assist pt was able to stand for 2 minutes then experienced a BM and was transfered to [facility] and left in care of nsg staff. A: pt tolerated therapy poor, BM during therapy. Pt fatigues quickly. will continue to progress as able. P: cont per POC
[2016-06-16] MEDS ORDERED: Magnesium Sulfate 4gm (Premix) 4 GM in Premix 1 BAG IV ONE (11:47)
[2016-06-16] MEDS ORDERED: Potassium Chloride 20 mEq 20 MEQ in Premix 1 BAG IV ONE (11:47)
[2016-06-16] MEDS ORDERED: PSYLLIUM SEED 1 EACH PACKET PO ONE ×2 (13:18)
[2016-06-16] MEDS: Sodium Chloride 0.9% 500 ML PRIMARY IV SCH (14:19)
[2016-06-16] MEDS ORDERED: Magnesium Sulfate 2gm (Premix) 50 ML IV ONE (16:33)
[2016-06-16] MEDS: ACETAMINOPHEN 500 MG TABLET PO PRN (20:24)
[2016-06-16] MEDS: Simvastatin Tab 10 MG TAB PO SCH (20:25)
[2016-06-16] MEDS: Loperamide Tab 2 MG TABLET PO SCH (20:25)
[2016-06-16] MEDS: PSYLLIUM SEED 1 EACH PACKET PO SCH ×2 (20:26)
[2016-06-17] MEDS: Sodium Chloride 0.9% 500 ML PRIMARY IV SCH ×2 (06:13→06:14)
[2016-06-17 06:22] LABS: CREATININE 0.5 mg/dL (0.50-1.20); POTASSIUM 3.2 meq/L (3.8-5.2)
[2016-06-17] MEDS: LANSOPRAZOLE 30 MG SOLUTAB PO SCH (08:13)
[2016-06-17] MEDS: metFORMIN 500 MG TABLET PO SCH ×2 (09:29→21:21)
[2016-06-17] MEDS: MAGNESIUM OXIDE 400 MG TABLET PO SCH ×2 (09:29→21:21)
[2016-06-17] MEDS: Multivitamin Tab 1 TAB PO SCH (09:30)
[2016-06-17] MEDS: LISINOPRIL 5 MG TABLET PO SCH (09:30)
[2016-06-17] MEDS: CLOPIDOGREL 75 MG TABLET PO SCH (09:30)
[2016-06-17] MEDS: ESCITALOPRAM 10 MG TABLET PO SCH (09:30)
[2016-06-17] MEDS: ENOXAPARIN SODIUM 40 MG/0.4 ML SYRINGE SUBCUT SCH (09:30)
[2016-06-17] MEDS: POTASSIUM CHLORIDE 40 MEQ/15 ML UD CUP PO SCH (09:30)
[2016-06-17] MEDS: PSYLLIUM SEED 1 EACH PACKET PO SCH ×4 (09:31→21:21)
[2016-06-17] MEDS ORDERED: POTASSIUM CHLORIDE 20 MEQ TAB PO ONE (10:23)
--- NOTE | 2016-06-17 12:14 | PT.PROG ---
Progress Note Progress Note: S. Patient communicated that she needed to use the commode. O. Patient was transferred to the commode then performed sit to stand transfers x5, long arc quads to assist with dressing x 5 bilaterally. then ambulated approximately 5 feet to the bed where shew was left with alarm and call light. A. Patient continues to have diarrhea and becomes very frustrated. She was able to kick her right leg while assisting with dressing. she was able to ambulate with mod assist to the bed. She continues to be very weak and would continue to benefit from skilled therapy at this time. P. continue POC.
[2016-06-17] MEDS: ACETAMINOPHEN 500 MG TABLET PO PRN ×2 (13:06→21:21)
--- NOTE | 2016-06-17 14:32 | OT.PROG ---
Progress Note Progress Note: S:Pt. appers to have increased pain in her right hand yet unable to quantify pain levels. O: Pt. seen from 1100 to 1120 with pt. moving from back of recliner chair to edge of recliner chair with min A. Pt. completed L s/p tranfer form edge of recline to commode with mod A, and min vc's.Pt. completed toileting with Total assistance secondary to weakness, low endurance and R hemiparesis. Pt.required assistance to pull elastic waist pants and brief up and down as well as cleansing with pt. [id number] a large loose stool. Pt given pillow to support her back secondary to frailty and to increase her comfort levels. Pt. required max A to complete oral care/teeth brushing secondary to R hemiparesis, decreased cogniton, and decreased bodliy awareness. Pt. given a 5 min rest break then re- engaging in dressing doffing soiled LE clothing total assistance and re-donning with total assistance to re-thread both legs of brief and elastic waist pants, pull up to knees and over her waist. Pt. required complete assist to alen her socks due to decreased trunk control and ablility to flex forward on her own or use leg crossing techniques. A: Pt. flexor synergy is becoming more predominant in R hand with and increase in swelling/edema. Nursing and staff education provided on htod to elevate L hand and forearm to promote edema reduction and increase her comfort levels. Jackie Carlos OTD, OTR/L
--- NOTE | 2016-06-17 15:13 | PDOC(PROG) ---
General Note Progress Note: Spoke to Emmanuel, patient's power of dinkey engineer, and I feel like we may need to revisit nutrition if we cannot get diarrhea under control and she's tried multiple tube feeding products now. That being said, we are trying to bulk up the stool with Metamucil, I'm adding tincture of opium, and my other thought is to decrease metformin to 500 mg twice a day. She may be having some diarrhea as a side effect of metformin. Additionally, we will go ahead and place the patient on a probiotic. C. difficile study was done about 6 days ago and is negative and we have another one pending. Patient Problems - Patient Problem List (1) Protein calorie malnutrition Current Visit: Yes Status: Acute (2) Decubitus ulcer Current Visit: Yes Status: Acute Qualifiers: Pressure ulcer location: sacral region Pressure ulcer stage: stage 2 Qualified Description: Decubitus ulcer of sacral region, stage 2 Qualifier Code(s): (L89.152) Pressure ulcer of sacral region, stage 2 (3) Diabetes Current Visit: Yes Status: Acute Qualifiers: Diabetes mellitus type: type 2 Diabetes mellitus complication status: without complication Diabetes mellitus petroleum terminal plant operator insulin use: without petroleum terminal plant operator use Qualified Description: Type 2 diabetes mellitus without complication, without long-term current use of insulin Qualifier Code(s): (E11.9) Type 2 diabetes mellitus without complications (4) Aphasia as late effect of cerebrovascular accident Current Visit: Yes Status: Chronic (5) History of stroke Current Visit: Yes Status: Chronic (6) Hypertension Current Visit: Yes Status: Chronic Qualifiers: Hypertension type: essential hypertension Qualified Description: Essential hypertension Qualifier Code(s): (I10) Essential (primary) hypertension
[2016-06-17] MEDS: ACIDOPHILUS/BULGARICUS CHEWABLE TABLET PO SCH (21:20)
[2016-06-17] MEDS: Simvastatin Tab 10 MG TAB PO SCH (21:21)
[2016-06-18] MEDS: Loperamide Tab 2 MG TABLET PO SCH ×2 (00:22→02:35)
[2016-06-18 08:59] LABS: CREATININE 0.5 mg/dL (0.50-1.20)
[2016-06-18 09:50] LABS: CALCIUM 8.4 mg/dL (8.7-10.7); POTASSIUM 3.7 meq/L (3.8-5.2)
[2016-06-18] MEDS: LANSOPRAZOLE 30 MG SOLUTAB PO SCH (10:23)
[2016-06-18] MEDS: ESCITALOPRAM 10 MG TABLET PO SCH (10:24)
[2016-06-18] MEDS: PSYLLIUM SEED 1 EACH PACKET PO SCH ×4 (10:24→21:43)
[2016-06-18] MEDS: POTASSIUM CHLORIDE 40 MEQ/15 ML UD CUP PO SCH (10:24)
[2016-06-18] MEDS: ENOXAPARIN SODIUM 40 MG/0.4 ML SYRINGE SUBCUT SCH (10:24)
[2016-06-18] MEDS: ACIDOPHILUS/BULGARICUS CHEWABLE TABLET PO SCH ×3 (10:24→21:42)
[2016-06-18] MEDS: MAGNESIUM OXIDE 400 MG TABLET PO SCH ×2 (10:25→21:43)
[2016-06-18] MEDS: CLOPIDOGREL 75 MG TABLET PO SCH (10:25)
[2016-06-18] MEDS: Multivitamin Tab 1 TAB PO SCH (10:25)
[2016-06-18] MEDS: LISINOPRIL 5 MG TABLET PO SCH (10:25)
[2016-06-18] MEDS: metFORMIN 500 MG TABLET PO SCH ×2 (10:25→21:43)
[2016-06-18] MEDS: OPIUM TINCTURE PO PRN (11:18)
--- NOTE | 2016-06-18 15:08 | OT.PROG ---
Progress Note Progress Note: S: Pt. appeared to perk up when asked if she wanted to do a shower." O: Pt. seen from 1330 to 1430 with pt. engaged in L s/p transfer with mod A and mod vc's. Pt. completed L s/p transfer from w/c to shower chair with mod A and mod vc's. Pt. completed shower activity with total assistance required to wash, rinse, and dry lower legs, feet, lesley-area, bottom, BUE's, back and hair. Pt. donned long-sleeved pullover top with mod A and attempting to assist to pull top overhead and then received help to adjust down in the back. Pt. also required assistance to thread both sleeves. Pt. then moved from her shower chair to the w/c using L s/p transfer with mod A and mod vc's. Pt. required max A to alen LE garments and to thread both legs of elastic waist pants, alen and pull up brief, and alen skid socks. A: Pt.efforting somewhat during therapy yet pt. sighing often and holding head down as if she was fatigued. Pt. having a difficult time with expressive language and making her needs known. Pt. neglecting RUE and atrophy evidenced around entire R chest wall,shoulders, and scapula. Incoming flexor tone evidenced and pt. showing flexor tightness and flexed wrist/fingers. Soft R resting hand splint ordered to reduce edema, prevent ROM loss, increase comfort , and prevent contracture formation. Pt. shoulder demonstrates 2 finger subluxation. P: Continue POC to maximize function and quality of life. Jackie Carlos OTD, OTR/L
[2016-06-18] MEDS: CHOLESTYRAMINE/SUCROSE 4 GM PACKET PO SCH (21:43)
[2016-06-18] MEDS: Simvastatin Tab 10 MG TAB PO SCH (21:43)
[2016-06-19] MEDS: Loperamide Tab 2 MG TABLET PO SCH (05:04)
[2016-06-19 06:55] LABS: CALCIUM 8.5 mg/dL (8.7-10.7); CREATININE 0.5 mg/dL (0.50-1.20); POTASSIUM 3.5 meq/L (3.8-5.2)
[2016-06-19] MEDS: LANSOPRAZOLE 30 MG SOLUTAB PO SCH (09:38)
[2016-06-19] MEDS: CHOLESTYRAMINE/SUCROSE 4 GM PACKET PO SCH ×2 (10:31→21:38)
[2016-06-19] MEDS: MAGNESIUM OXIDE 400 MG TABLET PO SCH ×2 (10:31→21:38)
[2016-06-19] MEDS: ENOXAPARIN SODIUM 40 MG/0.4 ML SYRINGE SUBCUT SCH (10:32)
[2016-06-19] MEDS: metFORMIN 500 MG TABLET PO SCH ×2 (10:32→21:39)
[2016-06-19] MEDS: Multivitamin Tab 1 TAB PO SCH (10:32)
[2016-06-19] MEDS: CLOPIDOGREL 75 MG TABLET PO SCH (10:32)
[2016-06-19] MEDS: ESCITALOPRAM 10 MG TABLET PO SCH (10:32)
[2016-06-19] MEDS: POTASSIUM CHLORIDE 40 MEQ/15 ML UD CUP PO SCH (10:32)
[2016-06-19] MEDS: LISINOPRIL 5 MG TABLET PO SCH (10:32)
[2016-06-19] MEDS: PSYLLIUM SEED 1 EACH PACKET PO SCH ×4 (10:32→21:38)
[2016-06-19] MEDS: ACIDOPHILUS/BULGARICUS CHEWABLE TABLET PO SCH ×3 (10:33→21:38)
[2016-06-19] MEDS: OPIUM TINCTURE PO PRN ×2 (11:38→17:08)
--- NOTE | 2016-06-19 15:34 | OT AM DAY ---
Diagnosis : Cerebral Vascular Accident AM - Occupational Therapy S: The therapist came in right after the patient was done with a feeding. O: Today the patient refused to come downstairs. She kept stating "I don't feel well." We transferred the patient to the commode and she had a globby bowel movement. Nursing helped the therapist with transfers as well as cleaning the patient up. After clean up, the patient was transferred back to bed and we worked on ADLs including lower extremity and upper extremity dressing with max assist. The patient was then transferred back to bed as she did not have enough energy to continue with more therapy. A: The patient is still weak; she still has diarrhea but it is slightly globbier. P: Continue seeing patient BID during the week and one time per day over the weekend for upper extremity strengthening, ADLs, and overall functional mobility. MTDD
--- NOTE | 2016-06-19 16:13 | PT.PROG ---
Progress Note Progress Note: S: pt agreeable to PT O: nsg okay'd prior to therapy. Pt transferred from supine to sitting on the edge of bed where she performed LAQ x5 she is unable to reach full ext RLE, and left in care of OT. A: pt tolerated therapy poor today, Pt continues to fatigues quickly. will continue to progress as able. P: Patient will have PT 1 x per day due to nutritional deficits and energy conservation.
--- NOTE | 2016-06-19 16:56 | OT PM DAY ---
Diagnosis : Cerebral Vascular Accident PM - Occupational Therapy S: The patient was in bed upon the therapist's arrival. O: OT co treated with PT and performed therapies to promote safety with patient. The patient performed bed mobility with PT and OT performed toileting task, attempting to have the patient transfer from edge of bed to the commode. The patient was very insistent that she was not able to perform the transfer and did not want assistance. The patient required assistance to lay back in bed and received max assist for changing of Attends and dressing of lower extremities. The patient required min assist to roll from one side to the other side. After PT session, the patient received manual therapy in the form of massage to right affected hand for help with circulation and contractures. The patient complained of pain lateral to wrist secondary to INT. Nursing was notified. The patient received joint mobility and active range of motion to fingers and wrist in all planes. The patient was placed on side with pillows placed for joint and skin protection. The therapist sat with patient and sang to her as she became more relaxed and fell asleep. Call light was left within reach. A: The patient appears to be struggling with increased pain secondary to grimacing during movements. She is very insistent that she does not want to stand up. She is very insistent that she does not want to be transferred, even with assistance from therapist. The patient's arm was very painful; it has been discussed to remove the INT to see if it would decrease her pain and decrease contractures that are occurring. The therapist is concerned about nutritional decline secondary to increased diarrhea. Nursing and dietary are aware and are obtaining solutions. P: Continue seeing patient BID during the week and one time per day over the weekend for upper extremity strengthening, ADLs, and overall functional mobility. MTDD
[2016-06-19] MEDS: Simvastatin Tab 10 MG TAB PO SCH (21:38)
[2016-06-20] MEDS: Loperamide Tab 2 MG TABLET PO SCH (02:50)
[2016-06-20] MEDS: LANSOPRAZOLE 30 MG SOLUTAB PO SCH (09:30)
[2016-06-20] MEDS: Multivitamin Tab 1 TAB PO SCH (09:30)
[2016-06-20] MEDS: ACIDOPHILUS/BULGARICUS CHEWABLE TABLET PO SCH ×3 (09:30→21:07)
[2016-06-20] MEDS: POTASSIUM CHLORIDE 40 MEQ/15 ML UD CUP PO SCH (09:30)
[2016-06-20] MEDS: PSYLLIUM SEED 1 EACH PACKET PO SCH ×4 (09:30→21:07)
[2016-06-20] MEDS: CLOPIDOGREL 75 MG TABLET PO SCH (09:30)
[2016-06-20] MEDS: ESCITALOPRAM 10 MG TABLET PO SCH (09:30)
[2016-06-20] MEDS: ENOXAPARIN SODIUM 40 MG/0.4 ML SYRINGE SUBCUT SCH (09:30)
[2016-06-20] MEDS: CHOLESTYRAMINE/SUCROSE 4 GM PACKET PO SCH ×2 (09:30→21:07)
[2016-06-20] MEDS: MAGNESIUM OXIDE 400 MG TABLET PO SCH ×2 (09:30→21:07)
[2016-06-20] MEDS: LISINOPRIL 5 MG TABLET PO SCH (09:30)
[2016-06-20] MEDS: metFORMIN 500 MG TABLET PO SCH (09:30)
--- NOTE | 2016-06-20 10:27 | OT.PROG ---
Progress Note Progress Note: S: Pt up in her recliner in her room." O: Pt. seen from 914 to 929 with pt. provided with STM R forearm and hand with attempts made to have pt. engage [id number] of her RUE. Pt. demonstrates 2 finger subluxation and increased edema R hand/wrist and fingers. Staff education provided on limb positioning and elevation to reduce edema and increase comfort levels. PROM and A/AROM attempts made to RUE with increased pain/reduced ROM and facial grimacing in the following pivots: MP extension, wrist and finger extension, end range elbow extension, shoulder flexion, abduction, and E.R. Tapping and facilatory techniques attempted and pt. was randomly able to effort on some occasions. Pt. demonstrates incoming tone with RUE, R hand and flexor synergy. pt. reveals muscle grade 1-2 in both the R shoulder and hand. A: Pt. continues to demonstrate both expressive and receptive aphasia and atrophy in R shoulder/ scapula. Pt. continues to demonstrate motor apraxia of speech. Further staff education needed of positioning RUE to reduce edema, prevent contracture formation, and reduce pain/increase comfort levels. P: Continue POC. Jackie Carlos OTD, OTR/L
--- NOTE | 2016-06-20 12:20 | PDOC(PROG) ---
Date and Time of Service: 06/20/2016 12:17 PM Interval History: Subjective Patient was sitting in the chair she doesn't appear in distress. At times she answer the question appropriately and at times she goes back to her usual word salad. Objective : Data - Labs CBC and BMP: 06/19/16 05:45 Objective : Exam - General General Appearance: No Acute Distress, Cooperative, Thin - Head Head Exam: Normal Inspection - Eye Eye Exam: Normal Appearance - Neck Neck Exam: Normal Inspection - Respiratory Respiratory Exam: Clear to Auscultation - Bilaterally - Cardiovascular Cardiovascular Exam: RRR - GI/Abdominal GI/Abdominal Exam: Normal Bowel Sounds, Non Tender, Non Distended Additional GI/Abdominal Exam Details: PEG tube in place - Rectal Rectal Exam: Deferred - External Exam: Deferred - Extremities Extremities Exam: Normal Inspection - Back Back Exam: Normal Inspection - Neurological Neurological Exam: Alert Additional Neurological Exam Details: Still unchanged with aphasia and right-sided weakness Assessment and Plan - Patient Problems (1) History of stroke Current Visit: Yes Status: Chronic Comment: Continue PT and OT. She is on tube feeding however this was switched quite a few different times to try to find a regimen that would help her diarrhea. She is on antidiarrheal agents continue. I think will give this one a trial and see whether she can tolerate it. (2) Diabetes Current Visit: Yes Status: Acute Comment: I think I'll DC the metformin just in case this is causing her diarrhea and put her on Sliding Scale. Qualifiers: Diabetes mellitus type: type 2 Diabetes mellitus complication status: without complication Diabetes mellitus long term care administrator insulin use: without fpc use Qualified Description: Type 2 diabetes mellitus without complication, without long-term current use of insulin Qualifier Code(s): (E11.9) Type 2 diabetes mellitus without complications (3) Hypertension Current Visit: Yes Status: Chronic Comment: Same med Qualifiers: Hypertension type: essential hypertension Qualified Description: Essential hypertension Qualifier Code(s): (I10) Essential (primary) hypertension (4) Decubitus ulcer Current Visit: Yes Status: Acute Comment: Continue wound care Qualifiers: Pressure ulcer location: sacral region Pressure ulcer stage: stage 2 Qualified Description: Decubitus ulcer of sacral region, stage 2 Qualifier Code(s): (L89.152) Pressure ulcer of sacral region, stage 2 (5) DVT prophylaxis Current Visit: No Status: Acute Comment: He is on Lovenox (6) Depression Current Visit: Yes Status: Acute Comment: Same medications (7) Esophagitis Current Visit: Yes Status: Acute Comment: She is on omeprazole continue
--- NOTE | 2016-06-20 15:52 | PT.PROG ---
Progress Note Progress Note: S. Patient agreed to use the commode. O. Patient transferred from supine to sit then stand pivot to the commode she performed 3 sit to stands then ambulated 3 feet to the chair, where she was left with call light. A. Patient continues to require mod assist with sit to stand transfer, she was able to take the few steps to get to the chair with mod assist, she appears to be loosing strength however. She continues to be very frustrated when trying to communicate. Patient would continue to benefit from skilled therapy at this time. P. continue POC.
[2016-06-20] MEDS: Insulin Lispro Flexpen 300 UNIT/3 ML INSULN.PEN SUBCUT SCH (16:40)
[2016-06-20] MEDS: OPIUM TINCTURE PO PRN (17:35)
[2016-06-20] MEDS: Simvastatin Tab 10 MG TAB PO SCH (21:06)
[2016-06-20] MEDS: ACETAMINOPHEN 500 MG TABLET PO PRN (21:06)
[2016-06-21 06:46] LABS: BUN/CREATININE RATIO 13.33 (6-20); CREATININE 0.6 mg/dL (0.50-1.20); POTASSIUM 3.7 meq/L (3.8-5.2)
[2016-06-21] MEDS: CLOPIDOGREL 75 MG TABLET PO SCH (09:39)
[2016-06-21] MEDS: MAGNESIUM OXIDE 400 MG TABLET PO SCH ×2 (09:40→20:23)
[2016-06-21] MEDS: Multivitamin Tab 1 TAB PO SCH (09:40)
[2016-06-21] MEDS: CHOLESTYRAMINE/SUCROSE 4 GM PACKET PO SCH ×2 (09:40→20:23)
[2016-06-21] MEDS: POTASSIUM CHLORIDE 40 MEQ/15 ML UD CUP PO SCH (09:40)
[2016-06-21] MEDS: LISINOPRIL 5 MG TABLET PO SCH (09:40)
[2016-06-21] MEDS: PSYLLIUM SEED 1 EACH PACKET PO SCH ×2 (09:40)
[2016-06-21] MEDS: LANSOPRAZOLE 30 MG SOLUTAB PO SCH (09:40)
[2016-06-21] MEDS: ESCITALOPRAM 10 MG TABLET PO SCH (09:40)
[2016-06-21] MEDS: ENOXAPARIN SODIUM 40 MG/0.4 ML SYRINGE SUBCUT SCH (09:41)
[2016-06-21] MEDS: ACIDOPHILUS/BULGARICUS CHEWABLE TABLET PO SCH ×3 (09:42→20:23)
[2016-06-21] MEDS: Insulin Lispro Flexpen 300 UNIT/3 ML INSULN.PEN SUBCUT SCH ×3 (09:43→18:16)
[2016-06-21] MEDS: Loperamide Tab 2 MG TABLET PO SCH ×2 (15:27→20:23)
--- NOTE | 2016-06-21 15:39 | OT.PROG ---
Progress Note Progress Note: S: Pt. supine in bed to begin OT session. O: Pt. seen from 0800 to 0830 with pt. brief soiled. Pt rolled left and R with max A to roll to the left secondary to R hemiparesis and decreased functional reach. Pt. then rolled to the right using [id number] placement of LUE onto bed rail and pt. requiring only min A and mod vc's. Pt. pericare performed while pt. took a rest break. Pt. then moved form supine to sit with total assist to get to EOB with B feet supported. Pt. then engaging in UE and LE dressing using luis-dressing techniques. Pt. required external trunk support secondary to pt. weakness and R hemiparesis. Pt. max A to alen and thread long- sleeved pullover top and total assist to alen LE garments (elastic waist pants and skid socks). PROM and neuro-re-ed strategies attempted with RUE and then retrograde massage to help reduce edema. A: Pt. decreased activity tolerance and appearing very fatigued even when performing the most basic ADL's. Consult with Zeus on pt. status and education provided to staff on elevation and positioning of RUE to reduce pain and increase comfort of R limb associated with low tone and R shoulder subluxation. P: POC and tx approaches revised to assist pt. with most basic ADL's, conserve energy, and enhance quality of life/daily functioning. Pt. tx frequency reduced to 1x/wk as pt. not tolerating BID tx's currently. Jackie Carlos OTD, OTR/L
--- NOTE | 2016-06-21 16:14 | PT.PROG ---
Progress Note Progress Note: S. Patient agreed to use the commode. O. Patient transferred from supine to sit then stand pivot transfer to the commode then performed 3 sit to stands then performed stand pivot transfer back to bed where she was left with nursing. A. Patient continues to require mod assist with transfers, she continues to be weak and would continue to benefit from skilled therapy at this time. P. continue POC.
--- NOTE | 2016-06-21 16:30 | OT PM DAY ---
Diagnosis : Cerebral Vascular Accident PM - Occupational Therapy S: The patient reports no new changes. O: OT co-treated with PT for safety. The patient participated in transfer from edge of bed to commode, requiring max assist x2 for transfer and doffing of lower extremity clothing. The patient required max assist with lesley care and required verbal cues for seating placement. The patient then required max assist for donning of lower extremity clothing. The patient then transferred to recliner with mod assist x2. It is notable that during toileting task the patient had diarrhea x3. The patient demonstrated frustration and agitation through grimacing, stating "no no no". The patient also demonstrated embarrassment throughout task; she was very sad and cried at one point. The patient was encouraged to perform tasks to the best of her ability. The therapist attempted to calm the patient and reassure her that she was safe and that the therapist was comfortable with the situation. At the end of the session the patient was still sad, shaking her head and verbalizing dissatisfaction. The patient was left in recliner with call light available to her and blanket for comfort. A: The patient was struggling today during session. The patient demonstrated weakness and required verbal cues. Nursing staff was notified of diarrhea including texture and amount. It is noted that the patient has declined secondary to inability to transfer, requiring increased assistance during transfers. The patient had been asked to go listen to music while in wheelchair and the patient refused, stating she was tired. It is noted that OT will focus on nutritional intake with decreased exercise secondary to not enough calories at this time. We will focus mainly on basic ADLs to help the patient stay strong and to facilitate increasing strength and weight. P: Continue seeing patient BID during the week and one time per day over the weekend for upper extremity strengthening, ADLs, and overall functional mobility. MTDD
[2016-06-21] MEDS: Simvastatin Tab 10 MG TAB PO SCH (20:22)
[2016-06-22] MEDS: LANSOPRAZOLE 30 MG SOLUTAB PO SCH (08:30)
[2016-06-22] MEDS: Insulin Lispro Flexpen 300 UNIT/3 ML INSULN.PEN SUBCUT SCH ×3 (08:30→17:34)
[2016-06-22] MEDS: CLOPIDOGREL 75 MG TABLET PO SCH (10:34)
[2016-06-22] MEDS: Multivitamin Tab 1 TAB PO SCH (10:34)
[2016-06-22] MEDS: LISINOPRIL 5 MG TABLET PO SCH (10:34)
[2016-06-22] MEDS: ESCITALOPRAM 10 MG TABLET PO SCH (10:34)
[2016-06-22] MEDS: MAGNESIUM OXIDE 400 MG TABLET PO SCH ×2 (10:34→20:18)
[2016-06-22] MEDS: Loperamide Tab 2 MG TABLET PO SCH ×3 (10:35→20:18)
[2016-06-22] MEDS: ACIDOPHILUS/BULGARICUS CHEWABLE TABLET PO SCH ×3 (10:35→20:18)
[2016-06-22] MEDS: POTASSIUM CHLORIDE 40 MEQ/15 ML UD CUP PO SCH (10:35)
[2016-06-22] MEDS: ENOXAPARIN SODIUM 40 MG/0.4 ML SYRINGE SUBCUT SCH (10:35)
[2016-06-22] MEDS: CHOLESTYRAMINE/SUCROSE 4 GM PACKET PO SCH ×2 (10:35→20:19)
[2016-06-22] MEDS: OPIUM TINCTURE PO PRN ×2 (13:45→17:53)
[2016-06-22] MEDS: Simvastatin Tab 10 MG TAB PO SCH (20:18)
[2016-06-22] MEDS: ACETAMINOPHEN 500 MG TABLET PO PRN (20:18)
[2016-06-23] MEDS: LANSOPRAZOLE 30 MG SOLUTAB PO SCH (08:35)
[2016-06-23 09:01] LABS: BUN/CREATININE RATIO 16.66 (6-20); CALCIUM 9.1 mg/dL (8.7-10.7); CREATININE 0.6 mg/dL (0.50-1.20); POTASSIUM 4.3 meq/L (3.8-5.2)
[2016-06-23] MEDS: ENOXAPARIN SODIUM 40 MG/0.4 ML SYRINGE SUBCUT SCH (09:49)
[2016-06-23] MEDS: LISINOPRIL 5 MG TABLET PO SCH (09:49)
[2016-06-23] MEDS: Multivitamin Tab 1 TAB PO SCH (09:50)
[2016-06-23] MEDS: MAGNESIUM OXIDE 400 MG TABLET PO SCH ×2 (09:50→20:29)
[2016-06-23] MEDS: CHOLESTYRAMINE/SUCROSE 4 GM PACKET PO SCH ×2 (09:50→20:29)
[2016-06-23] MEDS: ACIDOPHILUS/BULGARICUS CHEWABLE TABLET PO SCH ×3 (09:50→20:41)
[2016-06-23] MEDS: CLOPIDOGREL 75 MG TABLET PO SCH (09:50)
[2016-06-23] MEDS: ESCITALOPRAM 10 MG TABLET PO SCH (09:50)
[2016-06-23] MEDS: Insulin Lispro Flexpen 300 UNIT/3 ML INSULN.PEN SUBCUT SCH ×3 (09:50→17:46)
[2016-06-23] MEDS: Loperamide Tab 2 MG TABLET PO SCH ×3 (09:51→20:29)
[2016-06-23] MEDS: POTASSIUM CHLORIDE 40 MEQ/15 ML UD CUP PO SCH ×3 (09:53→10:47)
[2016-06-23] MEDS ORDERED: POTASSIUM CHLORIDE 40 MEQ/15 ML UD CUP PO ONE (09:55)
[2016-06-23] MEDS: OPIUM TINCTURE PO PRN (12:33)
[2016-06-23] MEDS: Simvastatin Tab 10 MG TAB PO SCH (20:29)
[2016-06-23] MEDS ORDERED: POTASSIUM CHLORIDE 40 MEQ/15 ML UD CUP PO SCH (21:00)
[2016-06-24] MEDS: Insulin Lispro Flexpen 300 UNIT/3 ML INSULN.PEN SUBCUT SCH ×3 (07:55→16:14)
[2016-06-24] MEDS: LANSOPRAZOLE 30 MG SOLUTAB PO SCH (08:00)
[2016-06-24] MEDS: ENOXAPARIN SODIUM 40 MG/0.4 ML SYRINGE SUBCUT SCH (08:45)
[2016-06-24] MEDS: MAGNESIUM OXIDE 400 MG TABLET PO SCH ×2 (08:45→20:30)
[2016-06-24] MEDS: POTASSIUM CHLORIDE 40 MEQ/15 ML UD CUP PO SCH (08:46)
[2016-06-24] MEDS: LISINOPRIL 5 MG TABLET PO SCH (08:46)
[2016-06-24] MEDS: ESCITALOPRAM 10 MG TABLET PO SCH (08:46)
[2016-06-24] MEDS: Loperamide Tab 2 MG TABLET PO SCH ×3 (08:46→20:29)
[2016-06-24] MEDS: Multivitamin Tab 1 TAB PO SCH (08:46)
[2016-06-24] MEDS: CLOPIDOGREL 75 MG TABLET PO SCH (08:46)
[2016-06-24] MEDS: CHOLESTYRAMINE/SUCROSE 4 GM PACKET PO SCH ×2 (08:46→20:30)
[2016-06-24] MEDS: ACIDOPHILUS/BULGARICUS CHEWABLE TABLET PO SCH ×3 (08:47→20:30)
--- NOTE | 2016-06-24 14:05 | PDOC(PROG) ---
Date and Time of Service: 06/24/2016, 1402 Interval History: Still has word jargon, word salad. Her history is too inconsistent to say that she is really answering any questions and I have been still shows expressive and receptive aphasia. I've been brought up-to-date by the nursing staff regarding the patient's continued diarrhea and also discussed with my partner Dr. Mcdonough, it is clear that this patient has not been tolerating tube feeding very well at all. We have now stopped metformin, and have placed her on antidiarrheals on a scheduled basis to try and slow this diarrhea down. We have continued tincture of opium as well. The patient continues to lose weight and is down to 101 pounds today. Her body mass index continues to drop as well. I spoke with her power of securities attorney, and discussed that I do not think CPR would be a good idea and I think it is futile procedure. There is a case conference is Friday that may hopefully lead some light to some of these decisions. Objective : Data - Labs CBC and BMP: 06/23/16 08:22 Objective : Exam - General General Appearance: No Acute Distress, Cooperative, Thin Additional General Exam Details: Vital Signs - Last Taken Temperature 97.8 F 06/24/16 07:00 Pulse Rate 84 06/24/16 07:00 Respiratory Rate 16 06/24/16 07:00 Blood Pressure 100/57 06/24/16 07:00 Pulse Ox 92 06/24/16 07:00 - Eye Eye Exam: No Scleral Icterus - ENT ENT Exam: Mucous Membranes Moist - Respiratory Respiratory Exam: Clear to Auscultation - Bilaterally, Breathing Non Labored - Cardiovascular Cardiovascular Exam: RRR, No Murmur, No Clicks, No Gallops, No Rubs, No JVD - GI/Abdominal GI/Abdominal Exam: Normal Bowel Sounds, Non Tender, Non Distended, Soft - Extremities Extremities Exam: No Clubbing Present, No Edema Present, No Cyanosis Present - Neurological Neurological Exam: Alert, Altered Assessment and Plan - Patient Problems (1) Protein calorie malnutrition Current Visit: Yes Status: Acute Comment: Despite best attempts at tube feeding, the patient continues to have diarrhea and is losing body mass. She has dropped 12 pounds from June 16. Nothing thus far has helped to slow the diarrhea down. (2) Decubitus ulcer Current Visit: Yes Status: Acute Qualifiers: Pressure ulcer location: sacral region Pressure ulcer stage: stage 2 Qualified Description: Decubitus ulcer of sacral region, stage 2 Qualifier Code(s): (L89.152) Pressure ulcer of sacral region, stage 2 (3) Diabetes Current Visit: Yes Status: Acute Qualifiers: Diabetes mellitus type: type 2 Diabetes mellitus complication status: without complication Diabetes mellitus senior living insulin use: without manager intermediate use Qualified Description: Type 2 diabetes mellitus without complication, without long-term current use of insulin Qualifier Code(s): (E11.9) Type 2 diabetes mellitus without complications (4) Aphasia as late effect of cerebrovascular accident Current Visit: Yes Status: Chronic (5) History of stroke Current Visit: Yes Status: Chronic (6) Hypertension Current Visit: Yes Status: Chronic Qualifiers: Hypertension type: essential hypertension Qualified Description: Essential hypertension Qualifier Code(s): (I10) Essential (primary) hypertension - Assessment / Plan Additional Assessment/Plan Details: Case conference this Friday, hopefully we can get some decisions in terms of CODE STATUS as I do think the patient should be DO NOT RESUSCITATE. I explained this extensively to patient's power of securities attorney. Essentially, I think that procedure would be futile as this patient will not tolerate compressions at all. I also described that DO NOT RESUSCITATE does not mean do not treat the patient. No medication changes today, continue tincture of opium and scheduled medications for diarrhea.
[2016-06-24] MEDS: OPIUM TINCTURE PO SCH (16:14)
--- NOTE | 2016-06-24 19:54 | DI ---
HISTORY: PEG tube placement check. COMPARISON: None available. FINDINGS: Examination with contrast reveals a PEG/gastrostomy tube which appears to be in position and is patent. The bowel gas pattern is unremarkable with no definite evidence of bowel obstruction. IMPRESSION: 1. Evidence of a PEG/gastrostomy tube which appears to be in position and is patent. Clinical corre lation is requested. 2. The bowel gas pattern is unremarkable with no definite evidence of bowel obstruction.
[2016-06-24] MEDS: Simvastatin Tab 10 MG TAB PO SCH (20:29)
[2016-06-24] MEDS: ACETAMINOPHEN 500 MG TABLET PO PRN (20:29)
[2016-06-25] MEDS: Loperamide Tab 2 MG TABLET PO SCH ×4 (03:14→21:22)
[2016-06-25] MEDS: LANSOPRAZOLE 30 MG SOLUTAB PO SCH (07:23)
[2016-06-25] MEDS: POTASSIUM CHLORIDE 40 MEQ/15 ML UD CUP PO SCH ×2 (07:33→09:12)
[2016-06-25] MEDS: Insulin Lispro Flexpen 300 UNIT/3 ML INSULN.PEN SUBCUT SCH ×3 (08:10→16:45)
[2016-06-25] MEDS ORDERED: ASPIRIN EC 81 MG TABLET PO SCH (09:00)
[2016-06-25] MEDS: CLOPIDOGREL 75 MG TABLET PO SCH (09:01)
[2016-06-25] MEDS: ESCITALOPRAM 10 MG TABLET PO SCH (09:01)
[2016-06-25] MEDS: Multivitamin Tab 1 TAB PO SCH (09:01)
[2016-06-25] MEDS: CHOLESTYRAMINE/SUCROSE 4 GM PACKET PO SCH ×2 (09:01→21:21)
[2016-06-25] MEDS: MAGNESIUM OXIDE 400 MG TABLET PO SCH ×2 (09:01→21:22)
[2016-06-25] MEDS: LISINOPRIL 5 MG TABLET PO SCH (09:01)
[2016-06-25] MEDS: ACIDOPHILUS/BULGARICUS CHEWABLE TABLET PO SCH ×3 (09:12→21:21)
--- NOTE | 2016-06-25 09:25 | PT AM DAY ---
Diagnosis : Cerebral Vascular Accident AM - Physical Therapy S: The patient reports no significant changes. O: The patient was seen in her room with assistance of nursing staff. We worked on ADLs including dressing, transfers, and sit to stands x2-3. We did attempt some ambulatory activities but we were not real successful this morning. She did transfer to her chair. We did some light active range of motion and passive movement of all four extremities. A: The patient tolerated today's treatment well. P: Continue seeing patient BID during the week and one time per day over the weekend for transfers, ambulation, and range of motion/strengthening exercises. MTDD
--- NOTE | 2016-06-25 10:03 | PT AM DAY ---
Diagnosis : Cerebral Vascular Accident AM - Physical Therapy S: The patient reports she is willing to participate in therapy. O: The patient was seen in her room. She was dressed and up in her chair. She was willing to do some light strengthening exercises on the left side. She performed active range of motion and active assistive range of motion on the right side. We attempted to stand on a couple of different occasions but she was not participating and was placed back in her chair. We will attempt again tomorrow. A: The patient is getting more subluxation issues with the right shoulder; it is painful upon movement. She may benefit from a luis-sling down the road. P: Continue seeing patient BID during the week and one time per day over the weekend for transfers, ambulation, and range of motion/strengthening exercises. MARS
--- NOTE | 2016-06-25 10:12 | PT AM DAY ---
Diagnosis : Cerebral Vascular Accident AM - Physical Therapy S: The patient reports no new changes. O: The patient was seen in her room today for light strengthening of the left upper and lower extremity and active range of motion of the right upper and lower extremities. A: We were getting some good active movement out of the right lower extremity today. Her right hand, fingers, and wrist are starting to contract. The therapist would recommend an anti-spasticity splint to be worn at nighttime. We will visit with our OT staff about this to see if we can get one built for her this coming week. P: Continue seeing patient BID during the week and one time per day over the weekend for transfers, ambulation, and range of motion/strengthening exercises. MTDD
--- NOTE | 2016-06-25 11:04 | PT.PROG ---
Progress Note Progress Note: S. Patient agreed to go to the commode and the chair this morning. O. Patient transferred from supine to seated then stand pivot transfer to the commode then sit to stand x3, then stand pivot to the chair. Patient was left in chair with call light. A. Patient was able to perform transfers however when prompted to ambulate a few feet to the chair she was unable to perform the movement to get to the chair , she required mod assist with sit to stand transfers until she became fatigued then she required max assist to get to the chair. Patient would continue to benefit from skilled therapy to increase strength, mobility and endurance. P. Continue POC.
[2016-06-25] MEDS: OPIUM TINCTURE PO SCH ×2 (11:29→21:22)
--- NOTE | 2016-06-25 19:38 | PDOC(PROG) ---
General Note Progress Note: The patient has not been able to tolerate any tube feeding solution despite the addition of cholestyramine, probiotics, stopping metformin, starting tincture of opium, and so at this point because of the diarrhea the patient will no longer had to feeding. We will instead let her do as much as she can on her by mouth intake, knowing full ready that she probably will not be able to maintain her caloric intake, but also will try to supplement with protein powder packs a couple times a day to see if we can boost the patient's protein. I don't know if it will help. My overall impression is that this is a patient that is in the process of dying from her cerebrovascular disease and stroke and that she will not be able to maintain caloric intake to maintain her nutrition. Patient Problems - Patient Problem List (1) Protein calorie malnutrition Current Visit: Yes Status: Acute (2) Decubitus ulcer Current Visit: Yes Status: Acute Qualifiers: Pressure ulcer location: sacral region Pressure ulcer stage: stage 2 Qualified Description: Decubitus ulcer of sacral region, stage 2 Qualifier Code(s): (L89.152) Pressure ulcer of sacral region, stage 2 (3) Diabetes Current Visit: Yes Status: Acute Qualifiers: Diabetes mellitus type: type 2 Diabetes mellitus complication status: without complication Diabetes mellitus prison insulin use: without termite renewal inspector use Qualified Description: Type 2 diabetes mellitus without complication, without long-term current use of insulin Qualifier Code(s): (E11.9) Type 2 diabetes mellitus without complications (4) Aphasia as late effect of cerebrovascular accident Current Visit: Yes Status: Chronic (5) History of stroke Current Visit: Yes Status: Chronic (6) Hypertension Current Visit: Yes Status: Chronic Qualifiers: Hypertension type: essential hypertension Qualified Description: Essential hypertension Qualifier Code(s): (I10) Essential (primary) hypertension
[2016-06-25] MEDS: Simvastatin Tab 10 MG TAB PO SCH (21:21)
[2016-06-26] MEDS: Loperamide Tab 2 MG TABLET PO SCH ×4 (03:15→21:38)
[2016-06-26] MEDS: LANSOPRAZOLE 30 MG SOLUTAB PO SCH (07:02)
[2016-06-26] MEDS: Insulin Lispro Flexpen 300 UNIT/3 ML INSULN.PEN SUBCUT SCH ×3 (07:58→16:57)
[2016-06-26] MEDS: MAGNESIUM OXIDE 400 MG TABLET PO SCH (09:24)
[2016-06-26] MEDS: ESCITALOPRAM 10 MG TABLET PO SCH (09:24)
[2016-06-26] MEDS: Multivitamin Tab 1 TAB PO SCH (09:24)
[2016-06-26] MEDS: ACIDOPHILUS/BULGARICUS CHEWABLE TABLET PO SCH ×3 (09:25→21:38)
[2016-06-26] MEDS: CHOLESTYRAMINE/SUCROSE 4 GM PACKET PO SCH (09:25)
[2016-06-26] MEDS: LISINOPRIL 5 MG TABLET PO SCH (09:25)
[2016-06-26] MEDS: POTASSIUM CHLORIDE 40 MEQ/15 ML UD CUP PO SCH (09:25)
[2016-06-26] MEDS: CLOPIDOGREL 75 MG TABLET PO SCH (09:25)
--- NOTE | 2016-06-26 09:43 | OT.PROG ---
Progress Note Progress Note: S:Pt. supine in bed upon arrival for occupational therapy. O: Pt. seen from 829 to 929 with pt. starting tx session by working on bed mobility and pt. given one verbal cue to use LUE to reach for R bed rail and engage in rolling to the right with pt .performing with min A. Pt. requiring mod A to roll to the left secondary to R hemiparesis. Pt. moved from supine to sit with total assist secondary to weakness and decreased core and UE strength. Pt. sat EOB with feet supported with CGA/min A. Pt. then completed L s/p transfer with mod-max A and mod vc's to move to the commode. Pt. completed toileting on commode with total assist and able to sit statically with back supported against commode and pillow support and direct supervision. Pt. required total assist for LE dressing to include donning brief, skid socks, and elastic waist pants. Pt. completed L s/p transfer from commode to recliner with mod-max A and mod vc's. Retrograde massage and low grade joint mobs to carpal bones performed as pt. flexor synergy present and pt's hand edematous yet less pronounced today compared to last week. Education provided to staff on elevation and positioning strategies to reduce risk of contracture and promote further ROM loss. A: Pt. continues to show R neglect and R shoulder subluxation. R soft resting hand splint ordered last week and waiting for the arrival. Pt. may benefit from a R shoulder sling to approximate the GH joint and reduce shoulder/R limb pain. Pt. has started to grab and guard her R limb and wrist. When asked if it hurts she replies with a "yes" on a consistent basis even though she cannot quantify a pain level. Facial grimacing and expressive responses (moaning) reveal she is in pain. She has also started to rub her hand and wrist during tx sessions. P: Continue POC to maximize function ,reduce pain, promote comfort and quality of life. Jackie Carlos OTD, OTR/L
[2016-06-26] MEDS: OPIUM TINCTURE PO SCH ×2 (09:48→21:38)
--- NOTE | 2016-06-26 14:07 | PDOC(PROG) ---
General Note Progress Note: Great toe ulcer on the right toe has healed. Patient Problems - Patient Problem List (1) Protein calorie malnutrition Current Visit: Yes Status: Acute (2) Decubitus ulcer Current Visit: Yes Status: Acute Qualifiers: Pressure ulcer location: sacral region Pressure ulcer stage: stage 2 Qualified Description: Decubitus ulcer of sacral region, stage 2 Qualifier Code(s): (L89.152) Pressure ulcer of sacral region, stage 2 (3) Diabetes Current Visit: Yes Status: Acute Qualifiers: Diabetes mellitus type: type 2 Diabetes mellitus complication status: without complication Diabetes mellitus director long term care insulin use: without group home use Qualified Description: Type 2 diabetes mellitus without complication, without long-term current use of insulin Qualifier Code(s): (E11.9) Type 2 diabetes mellitus without complications (4) Aphasia as late effect of cerebrovascular accident Current Visit: Yes Status: Chronic (5) History of stroke Current Visit: Yes Status: Chronic (6) Hypertension Current Visit: Yes Status: Chronic Qualifiers: Hypertension type: essential hypertension Qualified Description: Essential hypertension Qualifier Code(s): (I10) Essential (primary) hypertension
--- NOTE | 2016-06-26 16:18 | PT.PROG ---
Progress Note Progress Note: Nursing suggested to let her rest this afternoon, therefore patient was not seen by PT.
--- NOTE | 2016-06-26 20:54 | PDOC(PROG) ---
General Note Progress Note: I attended a care conference/committee with the patient's power of disability attorney, and several of the patient's friends and close associates. This was a summary of the patient's care to this point and the description of the prognosis for this patient which is worsening with time from this stroke. After the summary of the patient's case, I sat down with the patient's power of disability attorney and RN, and we discussed which medications would like to have the patient on. Our care from this point will be emphasizing comfort, emphasizing speech therapy, and minimizing extraneous measures that are causing the patient's symptoms such as diarrhea or pain. Given that, we went through each medication, [id number], and I have stopped several medications based on that discussion. In addition the CPR status was patient is now DO NOT RESUSCITATE/DO NOT INTUBATE. In my opinion, I think this is the best course for this patient as several of our care measures have proven to be insurmountable, such as providing nutrition via the PEG tube. Patient's body seems to be succumbing to her cerebrovascular disease and stroke, and her malnourishment is leading to a patient who is failing physical and occupational therapy as well. Again I voiced that I am in agreement with the level of care and changes in care for this patient and believe them to be appropriate. Patient Problems - Patient Problem List (1) Protein calorie malnutrition Current Visit: Yes Status: Acute (2) Decubitus ulcer Current Visit: Yes Status: Acute Qualifiers: Pressure ulcer location: sacral region Pressure ulcer stage: stage 2 Qualified Description: Decubitus ulcer of sacral region, stage 2 Qualifier Code(s): (L89.152) Pressure ulcer of sacral region, stage 2 (3) Diabetes Current Visit: Yes Status: Acute Qualifiers: Diabetes mellitus type: type 2 Diabetes mellitus complication status: without complication Diabetes mellitus shelter insulin use: without roasterman use Qualified Description: Type 2 diabetes mellitus without complication, without long-term current use of insulin Qualifier Code(s): (E11.9) Type 2 diabetes mellitus without complications (4) Aphasia as late effect of cerebrovascular accident Current Visit: Yes Status: Chronic (5) History of stroke Current Visit: Yes Status: Chronic (6) Hypertension Current Visit: Yes Status: Chronic Qualifiers: Hypertension type: essential hypertension Qualified Description: Essential hypertension Qualifier Code(s): (I10) Essential (primary) hypertension
[2016-06-26] MEDS: ACETAMINOPHEN 500 MG TABLET PO PRN (21:38)
[2016-06-27] MEDS: Loperamide Tab 2 MG TABLET PO SCH ×4 (04:00→21:42)
[2016-06-27] MEDS: LANSOPRAZOLE 30 MG SOLUTAB PO SCH (09:04)
[2016-06-27] MEDS: metFORMIN 500 MG TABLET PO SCH ×2 (09:06→16:43)
[2016-06-27] MEDS: ESCITALOPRAM 10 MG TABLET PO SCH (09:06)
[2016-06-27] MEDS: OPIUM TINCTURE PO SCH ×2 (09:07→21:42)
[2016-06-27] MEDS: ACIDOPHILUS/BULGARICUS CHEWABLE TABLET PO SCH ×3 (09:07→21:42)
--- NOTE | 2016-06-27 10:57 | OT.PROG ---
Progress Note Progress Note: S"Pt. supine in bed upon arrival" O: Pt. seen from 0830 to 0930 with pt. engaged in ADL session. Pt. moved from supine to sit EOB max A and attempting to use LUE/bed rail. Pt. sat EOB with external support secondary to decline in trunk control and weakness. Pt. complete L squat pivot transfer from EOB to commode with max A x 1. Pt. completed toileting on commode with total assist and total assist for toilet hygiene. Pt. required external physical support to sit on commode due to decreased core stability and weakness. Pt. required total assist to alen long- sleeved top (thread both sleeves, pull overhead, pull down in the front and back ). Pt. required total assist to alen LE garments (elastic waist pants, brief, and socks). Pt. moved from commode to tall back recliner chair and feet elevated to increase comfort levels. R soft resting hand splint donned, conformed, staff education provided, and splint wear schedule established to decrease R wrist/hand pain and increase pt's comfort level. A: Pt. is showing a decline in strength and activity tolerance. Pt's LLE gave out during commode to recliner transfer this morning due to fatigue and weakness. Now that tx has been reduced to 1x/day for OT services, Pt. still appearing to struggle with even the most basic ADL's. P: Focus on quality of life, splint wear, and increasing comfort/decreasing pain. Nursing reports change of status with G-tube feedings. Jackie Carlos OTD, OTR/L
[2016-06-28] MEDS: Loperamide Tab 2 MG TABLET PO SCH ×4 (02:22→21:53)
[2016-06-28] MEDS: LANSOPRAZOLE 30 MG SOLUTAB PO SCH (07:15)
[2016-06-28] MEDS: metFORMIN 500 MG TABLET PO SCH ×2 (07:15→16:20)
[2016-06-28] MEDS: ACIDOPHILUS/BULGARICUS CHEWABLE TABLET PO SCH ×3 (08:32→21:54)
[2016-06-28] MEDS: OPIUM TINCTURE PO SCH ×2 (08:32→21:54)
[2016-06-28] MEDS: ESCITALOPRAM 10 MG TABLET PO SCH (08:32)
--- NOTE | 2016-06-28 11:03 | OT.PROG ---
Progress Note Progress Note: S: Pt. supine in bed upon arrival of OT. O: Pt. completed rolling to the R with verbal cues and mod A to the left secondary to R hemiparesis and impaired reach with her RUE. Pt. then moving from supine to sit with total assist. Pt. completed L s/p transfer with max A x1 from EOB to the commode. Pt. engaged in toileting with use of bedside commode and requiring assist to pull elastic waist pants, brief up and down as well as herself. Pt. completed s/p commode to w/c transfer max A x1. Pt. engaged in UE dressing max A with pt. needing help to initiate threading of both BUEs, pt. helping to pullover-head (still needed physical assist), pull down in the front and the back. Pt. then engaged in grooming tasks with mod A ( [place]) using LUE to comb hair and brush teeth. A: Spoke with nursing today and reported that pt's blood pressure significantly improved today. P: Continue POC and continue to educate staff on R hand splint wear and use schedule to minimize ROM loss and incrwease comfort levels. Jackie Carlos OTD, OTR/L
[2016-06-29] MEDS: Loperamide Tab 2 MG TABLET PO SCH ×4 (03:33→21:48)
[2016-06-29] MEDS: ESCITALOPRAM 10 MG TABLET PO SCH (08:14)
[2016-06-29] MEDS: ACETAMINOPHEN 500 MG TABLET PO PRN (08:14)
[2016-06-29] MEDS: OPIUM TINCTURE PO SCH ×2 (08:14→21:48)
[2016-06-29] MEDS: LANSOPRAZOLE 30 MG SOLUTAB PO SCH (08:15)
[2016-06-29] MEDS: metFORMIN 500 MG TABLET PO SCH ×2 (08:15→16:51)
[2016-06-29] MEDS: ACIDOPHILUS/BULGARICUS CHEWABLE TABLET PO SCH ×3 (08:39→21:48)
[2016-06-29 14:34] LABS: HEMATOCRIT 37.9 % (37.0-47.0); HEMOGLOBIN 12.8 g/dL (12.0-16.0); MEAN CORPUSCULAR HEMOGLOBIN 28.9 PG (27-31); MEAN CORPUSCULAR HGB CONC 33.8 g/dL (33-37); MEAN PLATELET VOLUME 8.1 FL (7.4-12.2); RDW COEFFICIENT OF VARIATION 14.1 % (11.5-14.5); RED BLOOD COUNT 4.43 10^6/uL (4.20-5.40); WHITE BLOOD COUNT 13.12 10^3/uL (4.8-10.8)
[2016-06-29 14:56] LABS: BILIRUBIN,TOTAL 0.7 mg/dL (0.3-1.2); BUN/CREATININE RATIO 30.9 (6-20); CALCIUM 9.3 mg/dL (8.7-10.7); CREATININE 1.1 mg/dL (0.50-1.20); POTASSIUM 3.2 meq/L (3.8-5.2); TOTAL PROTEIN 5.9 g/dL (6.1-8.0)
--- NOTE | 2016-06-29 15:39 | DI ---
HISTORY: Altered mental status. COMPARISON: 05/25/2016. TECHNIQUE: Contiguous 5 mm images were obtained from the vertex through the skull base without the u se of contrast. Additional bone algorithm images were submitted. 32 images. FINDINGS: Evidence of chronic left MCA territory infarct. Mild senescent volume loss is also seen w ith ex vacuo enlargement of the ventricles and CSF spaces. [place]-white differentiation is maintained. No dense vessel sign, obscuration of the basal ganglia, loss of insular ribbon or other evidence of a cute vascular territorial infarction. There is no evidence of acute intracranial hemorrhage, herniat ion or hydrocephalus. Atherosclerotic vascular disease of the intracranial circulation. No evidence of calvarial fracture. Visualized portions of the skull base and craniocervical junction appear normal. Paranasal sinuses are clear. Normal appearance of the orbits and intraorbital oscar nts. IMPRESSION: 1. No evidence of acute intracranial abnormality. 2. Chronic left MCA territory infarction.
--- NOTE | 2016-06-29 16:20 | PDOC(PROG) ---
Interval History: Was called by nursing because patient had a change in mental status where she is appears to be weaker not wanting to move and barely opening eyes I've ordered a stat CT scan and call the power of document review attorney on further evaluation patient is basically her normal self but less responsive she does open her eyes slightly does not talk like her usual self power of document review attorney in the room as well as another close friend CT scan of his of the head showed no acute bleed. I believe the patient has failure to thrive patient is not taking any more by mouth intake even her PEG tube feeds are being unsuccessful where she has chronic diarrhea even though different solutions and rate of infusion of been tried. I believe the patient's body is shutting down and succumbing to her previous stroke I agree with comfort care with this patient considering her weight loss poor nutritional status with poor by mouth intake and also failing the to even participate in PT and OT. I've discussed this with the power of document review attorney and read my colleagues see previous note which I totally agree with. Patient seems comfortable at this time without any pain Objective : Data - Labs CBC and BMP: 06/29/16 14:20 06/29/16 14:20 Labs - Last 24 Hours: Laboratory Results 06/29/16 Range/Units 14:20 WBC 13.12 H (4.8-10.8) 10^3/uL RBC 4.43 (4.20-5.40) 10^6/uL Hgb 12.8 (12.0-16.0) g/dL Hct 37.9 (37.0-47.0) % MCV 85.6 (81-99) FL MCH 28.9 (27-31) PG MCHC 33.8 (33-37) g/dL RDW Std Deviation 43.1 (39-50) fL RDW Coeff of Jaqui 14.1 (11.5-14.5) % Plt Count 375 H (140-350) 10*3/uL MPV 8.1 (7.4-12.2) FL Sodium 130 L (135-145) meq/L Potassium 3.2 L D (3.8-5.2) meq/L Chloride 95 L (98-112) meq/L Carbon Dioxide 19 L (23-33) meq/L Anion Gap 16 (5-20) BUN 34 H (7-22) mg/dL Creatinine 1.1 (0.50-1.20) mg/dL Estimated GFR (>60 ml/min/1.73m(2)) BUN/Creatinine Ratio 30.90 H (6-20) Glucose 71 L (78-110) mg/dL Calculated Osmolality 275.0 (267-292) mOsm/kg Calcium 9.3 (8.7-10.7) mg/dL Total Bilirubin 0.7 (0.3-1.2) mg/dL AST 14 (8-39) IU/L ALT 28 (9-52) IU/L Alkaline Phosphatase 86 (38-126) IU/L Total Protein 5.9 L (6.1-8.0) g/dL Albumin 3.0 L (3.5-4.8) g/dL Globulin 2.9 (2.50-4.10) g/dL Albumin/Globulin Ratio 1.00 L (1.3-2.0) mg/g Objective : Exam - Cardiovascular Cardiovascular Exam: RRR - GI/Abdominal GI/Abdominal Exam: Normal Bowel Sounds, Non Distended, Soft - Neurological Additional Neurological Exam Details: Patient is not talkative opens her eyes when when called does not move or attempt to move when asked to Assessment and Plan - Patient Problems (1) Decubitus ulcer Current Visit: Yes Status: Acute Qualifiers: Pressure ulcer location: sacral region Pressure ulcer stage: stage 2 Qualified Description: Decubitus ulcer of sacral region, stage 2 Qualifier Code(s): (L89.152) Pressure ulcer of sacral region, stage 2 (2) Depression Current Visit: Yes Status: Acute (3) Diabetes Current Visit: Yes Status: Acute Qualifiers: Diabetes mellitus type: type 2 Diabetes mellitus complication status: without complication Diabetes mellitus intermediate accountant insulin use: without intermediate accountant use Qualified Description: Type 2 diabetes mellitus without complication, without long-term current use of insulin Qualifier Code(s): (E11.9) Type 2 diabetes mellitus without complications (4) Esophagitis Current Visit: Yes Status: Acute (5) Aphasia as late effect of cerebrovascular accident Current Visit: Yes Status: Chronic (6) History of stroke Current Visit: Yes Status: Chronic (7) Hypertension Current Visit: Yes Status: Chronic Qualifiers: Hypertension type: essential hypertension Qualified Description: Essential hypertension Qualifier Code(s): (I10) Essential (primary) hypertension - Assessment / Plan Additional Assessment/Plan Details: See HPI
[2016-06-30] MEDS: Loperamide Tab 2 MG TABLET PO SCH ×4 (02:28→21:32)
--- NOTE | 2016-06-30 10:19 | PT.PROG ---
Progress Note Progress Note: S: [place] refused to participate in therapy yesterday. Per nursing, [place] was taken for a CT scan due to concerns of another stroke - scan negative but nursing asked for only PROM to be performed if [place] was willing. O: Treatment consisted of: PROM for LUE in supine position, AROM for RUE in supine position, AAROM for flexion to 90 deg of BUE's, PROM for LLE in supine position, AAROM for RLE in supine position. A: Performed only ROM - pt tolerated motion well and was able to assist with RLE and RUE. P: Per pt tolerance.
[2016-06-30] MEDS: ESCITALOPRAM 10 MG TABLET PO SCH (11:13)
[2016-06-30] MEDS: LANSOPRAZOLE 30 MG SOLUTAB PO SCH (11:13)
[2016-06-30] MEDS: ACIDOPHILUS/BULGARICUS CHEWABLE TABLET PO SCH ×3 (11:14→21:32)
[2016-06-30] MEDS: OPIUM TINCTURE PO SCH ×2 (11:14→21:33)
[2016-06-30] MEDS: metFORMIN 500 MG TABLET PO SCH ×2 (11:15→16:46)
[2016-07-01] MEDS: ACETAMINOPHEN 500 MG TABLET PO PRN (00:29)
[2016-07-01] MEDS: Loperamide Tab 2 MG TABLET PO SCH ×4 (03:30→20:54)
[2016-07-01] MEDS: MORPHINE SULFATE 2 MG/1 ML IVP PRN ×10 (05:09→23:57)
[2016-07-01 07:19] VITALS: RESP 15; TEMP 97.4
[2016-07-01] MEDS: ESCITALOPRAM 10 MG TABLET PO SCH (09:40)
[2016-07-01] MEDS: OPIUM TINCTURE PO SCH ×2 (09:41→20:55)
[2016-07-01] MEDS: LANSOPRAZOLE 30 MG SOLUTAB PO SCH (09:41)
[2016-07-01] MEDS: ACIDOPHILUS/BULGARICUS CHEWABLE TABLET PO SCH ×3 (09:41→20:54)
[2016-07-01] MEDS: metFORMIN 500 MG TABLET PO SCH ×2 (09:41→17:28)
[2016-07-01] MEDS ORDERED: MORPHINE SULFATE 2 MG/1 ML IVP PRN (11:37)
--- NOTE | 2016-07-01 11:58 | PDOC(PROG) ---
Interval History: Patient his putting her arm over her head with some grimacing we will increase the morphine to 2 mg an hour for pain control after this was given it helped much her grimacing as stopped and the her hands away from her head now patient is resting comfortably. I had a meeting with the power of workers compensation attorney and other friends in the room at this point it is comfort care with the morphine to keep the patient's respirations between 10 and 14 and to treat apparent signs of distress and pain also nurse Ramon was in the room as well. As per power of workers compensation attorney will continue of whatever meds she is getting through her PEG tube. Objective : Data - Labs CBC and BMP: 06/29/16 14:20 06/29/16 14:20 Assessment and Plan - Patient Problems (1) Decubitus ulcer Current Visit: Yes Status: Acute Qualifiers: Pressure ulcer location: sacral region Pressure ulcer stage: stage 2 Qualified Description: Decubitus ulcer of sacral region, stage 2 Qualifier Code(s): (L89.152) Pressure ulcer of sacral region, stage 2 (2) Depression Current Visit: Yes Status: Acute (3) Diabetes Current Visit: Yes Status: Acute Qualifiers: Diabetes mellitus type: type 2 Diabetes mellitus complication status: without complication Diabetes mellitus half-way insulin use: without half-way use Qualified Description: Type 2 diabetes mellitus without complication, without long-term current use of insulin Qualifier Code(s): (E11.9) Type 2 diabetes mellitus without complications (4) Esophagitis Current Visit: Yes Status: Acute (5) Aphasia as late effect of cerebrovascular accident Current Visit: Yes Status: Chronic (6) History of stroke Current Visit: Yes Status: Chronic (7) Hypertension Current Visit: Yes Status: Chronic Qualifiers: Hypertension type: essential hypertension Qualified Description: Essential hypertension Qualifier Code(s): (I10) Essential (primary) hypertension - Assessment / Plan Additional Assessment/Plan Details: See HPI
[2016-07-01] MEDS: NORMAL SALINE 10 ML SYRINGE FLUSH IVP PRN ×5 (14:16→23:58)
[2016-07-02] MEDS: MORPHINE SULFATE 2 MG/1 ML IVP PRN ×3 (02:19→08:05)
[2016-07-02] MEDS: NORMAL SALINE 10 ML SYRINGE FLUSH IVP PRN ×3 (02:19→08:08)
[2016-07-02] MEDS: Loperamide Tab 2 MG TABLET PO SCH (04:56)
[2016-07-02] MEDS: MORPHINE SULFATE 4 MG/1 ML IVP PRN ×2 (10:45→11:50)
--- NOTE | 2016-07-02 12:14 | PDOC(PROG) ---
Interval History: Patient is resting comfortably we are having to up the morphine to 4 mg an hour we have decided to switch over to morphine drip for better pain control is still some grimacing noted but improved with the 4 mg Kobi power of admitted attorneys and to use comfort care Objective : Data - Labs CBC and BMP: 06/29/16 14:20 06/29/16 14:20 Assessment and Plan - Patient Problems (1) Decubitus ulcer Current Visit: Yes Status: Acute Qualifiers: Pressure ulcer location: sacral region Pressure ulcer stage: stage 2 Qualified Description: Decubitus ulcer of sacral region, stage 2 Qualifier Code(s): (L89.152) Pressure ulcer of sacral region, stage 2 (2) Depression Current Visit: Yes Status: Acute (3) Diabetes Current Visit: Yes Status: Acute Qualifiers: Diabetes mellitus type: type 2 Diabetes mellitus complication status: without complication Diabetes mellitus [facility] insulin use: without [facility] use Qualified Description: Type 2 diabetes mellitus without complication, without long-term current use of insulin Qualifier Code(s): (E11.9) Type 2 diabetes mellitus without complications (4) Esophagitis Current Visit: Yes Status: Acute (5) Aphasia as late effect of cerebrovascular accident Current Visit: Yes Status: Chronic (6) History of stroke Current Visit: Yes Status: Chronic (7) Hypertension Current Visit: Yes Status: Chronic Qualifiers: Hypertension type: essential hypertension Qualified Description: Essential hypertension Qualifier Code(s): (I10) Essential (primary) hypertension
[2016-07-02] MEDS: Morphine Sulfate Inj 250 MG in Sodium Chloride 0.9% 245 ML IV SCH ×3 (12:30→23:30)
--- NOTE | 2016-07-26 11:48 | DCSUMMARY ---
Hospitalization Summary Hospital Course: Final Discharge Diagnosis: 1. CVA causing right sided weakness and receptive aphasia 2. New-onset diabetes Diagnostic Data, Laboratory Data, and Procedures of Signifigance: Laboratory Results 06/08/16 06/12/16 06/13/16 Range/Units 05:20 05:25 20:47 WBC (4.8-10.8) 10^3/uL RBC (4.20-5.40) 10^6/uL Hgb (12.0-16.0) g/dL Hct (37.0-47.0) % MCV (81-99) FL MCH (27-31) PG MCHC (33-37) g/dL RDW Std Deviation (39-50) fL RDW Coeff of Jaqui (11.5-14.5) % Plt Count (140-350) 10*3/uL MPV (7.4-12.2) FL Sodium 131 L 136 135 (135-145) meq/L Potassium 3.9 2.7 L D 2.9 L (3.8-5.2) meq/L Chloride 100 105 108 (98-112) meq/L Carbon Dioxide 25 22 L 21 L (23-33) meq/L Anion Gap 6 9 6 (5-20) BUN 17 10 6 L (7-22) mg/dL Creatinine 0.7 0.6 0.6 (0.50-1.20) mg/dL Estimated GFR (>60 ml/min/1.73m(2)) BUN/Creatinine Ratio 24.28 H 16.66 10.00 (6-20) Glucose 95 100 146 H (78-110) mg/dL Calculated Osmolality 273.0 280.0 280.0 (267-292) mOsm/kg Calcium 9.1 8.5 L 8.3 L (8.7-10.7) mg/dL Magnesium 1.4 L (1.6-2.4) mg/dL Total Bilirubin 0.6 0.5 (0.3-1.2) mg/dL AST 21 17 (8-39) IU/L ALT 38 40 (9-52) IU/L Alkaline Phosphatase 75 66 (38-126) IU/L Total Protein 5.6 L 5.5 L (6.1-8.0) g/dL Albumin 2.7 L 2.6 L (3.5-4.8) g/dL Globulin 2.9 2.9 (2.50-4.10) g/dL Albumin/Globulin Ratio 0.90 L 0.80 L (1.3-2.0) mg/g 06/14/16 06/15/16 06/16/16 Range/Units 11:07 05:24 05:46 WBC (4.8-10.8) 10^3/uL RBC (4.20-5.40) 10^6/uL Hgb (12.0-16.0) g/dL Hct (37.0-47.0) % MCV (81-99) FL MCH (27-31) PG MCHC (33-37) g/dL RDW Std Deviation (39-50) fL RDW Coeff of Jaqui (11.5-14.5) % Plt Count (140-350) 10*3/uL MPV (7.4-12.2) FL Sodium 136 133 L 135 (135-145) meq/L Potassium 3.2 L 3.5 L 3.5 L (3.8-5.2) meq/L Chloride 109 109 109 (98-112) meq/L Carbon Dioxide 19 L 20 L 22 L (23-33) meq/L Anion Gap 8 4 L 4 L (5-20) BUN 5 L 5 L 8 (7-22) mg/dL Creatinine 0.6 0.6 0.6 (0.50-1.20) mg/dL Estimated GFR (>60 ml/min/1.73m(2)) BUN/Creatinine Ratio 8.33 8.33 13.33 (6-20) Glucose 141 H 88 91 (78-110) mg/dL Calculated Osmolality 280.0 271.0 277.0 (267-292) mOsm/kg Calcium 8.4 L 8.0 L 8.1 L (8.7-10.7) mg/dL Magnesium 1.3 L 2.0 1.9 (1.6-2.4) mg/dL Total Bilirubin (0.3-1.2) mg/dL AST (8-39) IU/L ALT (9-52) IU/L Alkaline Phosphatase (38-126) IU/L Total Protein (6.1-8.0) g/dL Albumin (3.5-4.8) g/dL Globulin (2.50-4.10) g/dL Albumin/Globulin Ratio (1.3-2.0) mg/g 06/17/16 06/18/16 06/19/16 Range/Units 06:03 08:47 05:45 WBC (4.8-10.8) 10^3/uL RBC (4.20-5.40) 10^6/uL Hgb (12.0-16.0) g/dL Hct (37.0-47.0) % MCV (81-99) FL MCH (27-31) PG MCHC (33-37) g/dL RDW Std Deviation (39-50) fL RDW Coeff of Jaqui (11.5-14.5) % Plt Count (140-350) 10*3/uL MPV (7.4-12.2) FL Sodium 134 L 132 L 130 L (135-145) meq/L Potassium 3.2 L 3.7 L 3.5 L (3.8-5.2) meq/L Chloride 106 105 102 (98-112) meq/L Carbon Dioxide 22 L 23 21 L (23-33) meq/L Anion Gap 6 4 L 7 (5-20) BUN 8 8 7 (7-22) mg/dL Creatinine 0.5 0.5 0.5 (0.50-1.20) mg/dL Estimated GFR (>60 ml/min/1.73m(2)) BUN/Creatinine Ratio 16.00 16.00 14.00 (6-20) Glucose 87 87 87 (78-110) mg/dL Calculated Osmolality 274.0 270.0 266.0 L (267-292) mOsm/kg Calcium 8.0 L 8.4 L 8.5 L (8.7-10.7) mg/dL Magnesium (1.6-2.4) mg/dL Total Bilirubin (0.3-1.2) mg/dL AST (8-39) IU/L ALT (9-52) IU/L Alkaline Phosphatase (38-126) IU/L Total Protein (6.1-8.0) g/dL Albumin (3.5-4.8) g/dL Globulin (2.50-4.10) g/dL Albumin/Globulin Ratio (1.3-2.0) mg/g 06/21/16 06/23/16 06/29/16 Range/Units 05:52 08:22 14:20 WBC 13.12 H (4.8-10.8) 10^3/uL RBC 4.43 (4.20-5.40) 10^6/uL Hgb 12.8 (12.0-16.0) g/dL Hct 37.9 (37.0-47.0) % MCV 85.6 (81-99) FL MCH 28.9 (27-31) PG MCHC 33.8 (33-37) g/dL RDW Std Deviation 43.1 (39-50) fL RDW Coeff of Jaqui 14.1 (11.5-14.5) % Plt Count 375 H (140-350) 10*3/uL MPV 8.1 (7.4-12.2) FL Sodium 135 135 130 L (135-145) meq/L Potassium 3.7 L 4.3 3.2 L D (3.8-5.2) meq/L Chloride 102 99 95 L (98-112) meq/L Carbon Dioxide 24 26 19 L (23-33) meq/L Anion Gap 9 10 16 (5-20) BUN 8 10 34 H (7-22) mg/dL Creatinine 0.6 0.6 1.1 (0.50-1.20) mg/dL Estimated GFR (>60 ml/min/1.73m(2)) BUN/Creatinine Ratio 13.33 16.66 30.90 H (6-20) Glucose 87 94 71 L (78-110) mg/dL Calculated Osmolality 276.0 278.0 275.0 (267-292) mOsm/kg Calcium 9.0 9.1 9.3 (8.7-10.7) mg/dL Magnesium (1.6-2.4) mg/dL Total Bilirubin 0.7 (0.3-1.2) mg/dL AST 14 (8-39) IU/L ALT 28 (9-52) IU/L Alkaline Phosphatase 86 (38-126) IU/L Total Protein 5.9 L (6.1-8.0) g/dL Albumin 3.0 L (3.5-4.8) g/dL Globulin 2.9 (2.50-4.10) g/dL Albumin/Globulin Ratio 1.00 L (1.3-2.0) mg/g Course of Hospitalization: This very nice 76-year-old female with past medical history significant for diabetes and recent stroke which caused right-sided weakness and receptive aphasia also has a history of GERD admitted to our hospital for continued rehabilitation for her recent stroke. She previously was at [facility] and later was transferred to [facility] while here at the hospital her diabetes was uncontrolled and subsequently this was controlled with lowering of her hemoglobin A1c patient continued to deteriorate throughout during her stay with less by mouth intake and so it was decided that the he PEG tube be inserted but even with PEG tube nutrition patient continued to deteriorate and not the doing well she had speech evaluations with no progress and no information could be obtained from the patient because of her receptive aphasia the patient's continued to deteriorate secondary to her massive stroke and it was decided by her power of assistant prosecuting attorney to have comfort care measures instituted patient subsequently the peacefully and in no pain. All parties involved including friends power of assistant prosecuting attorney all in agreement Hospital course Please see previous progress notes for further details on comfort care sugars Patient peacefully Exam - Vitals Vital Signs: Vital Signs Temperature 97.4 F Temperature Source Temporal Artery Scan Pulse Rate [Apical] 94 Pulse Rate [Pulse Oximeter] 81 Respiratory Rate 15 Blood Pressure [Left Arm] 122/59 Pulse Ox 90 Oxygen Delivery Method Room Air Height 5 ft 5 in Weight 44.8 kg Patient Problems - Patient Problem List (1) Decubitus ulcer Status: Acute Qualifiers: Pressure ulcer location: sacral region Pressure ulcer stage: stage 2 Qualified Description: Decubitus ulcer of sacral region, stage 2 Qualifier Code(s): (L89.152) Pressure ulcer of sacral region, stage 2 (2) Depression Status: Acute (3) Diabetes Status: Acute Qualifiers: Diabetes mellitus type: type 2 Diabetes mellitus complication status: without complication Diabetes mellitus fpc insulin use: without laborer marine terminal use Qualified Description: Type 2 diabetes mellitus without complication, without long-term current use of insulin Qualifier Code(s): (E11.9) Type 2 diabetes mellitus without complications (4) Esophagitis Status: Acute (5) Aphasia as late effect of cerebrovascular accident Status: Chronic (6) History of stroke Status: Chronic (7) Hypertension Status: Chronic Qualifiers: Hypertension type: essential hypertension Qualified Description: Essential hypertension Qualifier Code(s): (I10) Essential (primary) hypertension
== END 2016-07-03 06:12 | disposition expired | DRG 57 ==
LOC: MED/SURG 08:39 → UNDOADMIN 09:36 → UNDODISIN 06-13 15:29
PROVIDERS: ADMIT Internal Medicine; ATTEND Internal Medicine
DX: I69.820 Aphasia following other cerebrovascular disease (principal); R47.01 Aphasia; E46 Unspecified protein-calorie malnutrition; E11.9 Type 2 diabetes mellitus without complications; I10 Essential (primary) hypertension; F32.9 Major depressive disorder, single episode, unspecified; K20.9 Esophagitis, unspecified; R53.1 Weakness; L89.152 Pressure ulcer of sacral region, stage 2
CPT/HCPCS: 36415; 70450; 74000; 80048; 80053; 82948; 83735; 85027; 87493; 94761; 97001; 97110; 97112; 97124; 97530; 97535; 97750; J1650; J2270; J3475; J3480; J7050